=== PATIENT | female | born 1965 | race Caucasian/White ===

== ENCOUNTER 2022-10-07 12:25 | Inpatient (IN) ==
[2022-10-07] MEDS ORDERED: ONDANSETRON INJ 2 MG/ML 2 ML VIAL ONE (12:49)
[2022-10-07] MEDS ORDERED: SODIUM CHLORIDE 0.9% 1000ML 1,000 ML IV STA (12:55)
[2022-10-07] MEDS ORDERED: ONDANSETRON INJ 2 MG/ML 2 ML VIAL IV STA ×2 (12:55→16:08)
--- NOTE | 2022-10-07 13:00 | Emergency Department Note ---
Impression & Plan Nausea & vomiting, Weakness, Leukocytosis, Hypotensive episode ED Provider Note INFORMANT: Patient ED PROVIDER(S): Victor M Del Castillo DO CHIEF COMPLAINT: Nausea/vomiting PLAN: Disposition: Observation Outpatient prescription management: [none] Discussion with: I spoke with the hospitalist, who will see the patient for admission/observation and further evaluation and consultation. MEDICAL DECISION MAKING: This is a 56-year-old female who presents to the ED with a chief complaint of nausea and vomiting. The patient states that she was feeling okay this morning. Family states that the patient has been having some intermittent nausea and flulike symptoms for the past couple of weeks. The patient this morning was at an event. She was not doing much activity there. She was in organizer. She subsequently developed nausea and vomiting. She then became lightheaded and dizzy. Blood sugar upon arrival was 246. The patient was vomiting in the ED. She states that her nausea comes in waves. She denies any abdominal pains. No fevers. No chest pains or shortness of breath. Denies any diarrhea recently. Denies any headaches. No focal neurologic deficits. No other complaints at this time other than feeling generally fatigued and weak. The vomit in the ED was none bilious and nonbloody. Her initial blood pressure in triage was 88/61. Heart rate was 92. She does have history of hypertension as well as cholecystectomy and type 2 diabetes requiring insulin. Her exam reveals nontender abdomen. Lungs are clear. Heart is regular rate and rhythm. No rashes. EKG shows normal sinus rhythm. The patient's EKG shows normal sinus rhythm. White blood cell count is elevated 22.9. Chemistry panel showed no concerning electrolyte abnormality. Glucose is elevated 261. She is diabetic. Troponin was negative for myocardial infarction. Lipase was negative for pancreatitis. CT scan of the abdomen pelvis did not show any concerning abnormalities. The patient was told the results. She required at least 2 doses of IV Zofran during her ED stay. She was also given some IV fluids. She continued to have nausea and some vomiting despite 2 doses of IV Zofran. She overall is not feeling well. She lives alone. She does not feel comfortable going home. She will be seen by the hospitalist for further evaluation and care. Triage Nursing notes reviewed. Vital Signs: reviewed Prior /Outside records reviewed: [none] Differential diagnosis: Bowel obstruction, pancreatitis, liver disease, food poisoning, viral syndrome, dehydration, electrolyte abnormality, [place], intracranial process, other Diagnostics, as interpreted by me: 12 lead ECG: Normal sinus rhythm rate of 93. No ST elevation. No PVCs. Normal QTc. Cardiac Monitoring ordered: Sinus rhythm in the 80s and 90s. Medical decision rules: [none] Imaging studies: CT scan of the abdomen pelvis: No bowel obstruction. No pneumonia in the bases of the lungs. Procedures: none. Critical care: none. HPI: See MDM above. PAST MEDICAL HISTORY: See Below PAST SURGICAL HISTORY: See Below SOCIAL HISTORY: See Below HOME MEDICATIONS:See Below ALLERGIES: See Below VITALS: See Below PHYSICAL EXAMINATION: See MDM for positive findings otherwise unremarkable. CONSTITUTIONAL/VITAL SIGNS: Reviewed GENERAL:done as appropriate INTEGUMENTARY: done as appropriate HEAD: done as appropriate EYES: done as appropriate RESPIRATORY: done as appropriate CARDIOVASCULAR:done as appropriate GI/ABDOMEN:done as appropriate EXTREMITIES: done as appropriate NEUROLOGICAL: done as appropriate PSYCHIATRIC:done as appropriate MUSCULOSKELETAL:done as appropriate TRIAGE NURSING DOCUMENTATION REVIEWED. Past Med/Surg History Medical History (Updated 10/07/22 @ 17:26 by Victor M Del Castillo DO) Depression Diabetes mellitus, type 2 GERD (gastroesophageal reflux disease) HTN (hypertension) Hyperlipidemia Hypothyroidism Nausea and vomiting Nausea and vomiting after administration of anesthetic agent Spinal stenosis Surgical History History of cholecystectomy History of colonoscopy History of intraocular lens implant bilt History of lumbar laminectomy L4-L5 History of needle biopsy benign right breast History of tooth extraction History of wisdom tooth extraction Family History Mother Family history of diabetes mellitus Sister Family history of diabetes mellitus 2 Other No family history of adverse response to anesthesia Social History Smoking Status: Never smoker Second Hand Exposure: Yes (parents and sisters smoked); Do You Dip or Chew Tobacco: No; Hx Alcohol Use: No Hx Substance Use: No Preferred Language: [place] Communication Ability: Effective Founder Ceo & President Required: No Beliefs That Will Affect Care: None Current Living Situation: Alone Feels Safe at Home: Yes Assistive Devices: Glasses Allergies Allergies Allergy/AdvReac Type Severity Reaction Status Date / Time tree nut Allergy Severe swelling Verified 10/07/22 15:52 face/lips/tongue Penicillins Allergy Intermediate hives Verified 10/07/22 15:52 morphine AdvReac Intermediate vomit Verified 10/07/22 15:52 Home Meds Home Medications Medication Instructions Recorded Confirmed levothyroxine 50 mcg tablet 50 mcg PO DAILYBB 10/05/18 10/07/22 metformin 1,000 mg tablet 1,000 mg PO BIDM 10/05/18 10/07/22 venlafaxine 150 mg tablet,extended 150 mg PO QAM 10/05/18 10/07/22 release 24 hr atorvastatin 20 mg tablet 20 mg PO HS 10/07/22 10/07/22 clobetasol 0.05 % topical ointment 1 applic topical BID PRN Rash 10/07/22 10/07/22 empagliflozin 25 mg tablet 25 mg PO QAM 10/07/22 10/07/22 (Jardiance) insulin aspart U-100 100 unit/mL 0 unit subcut DIRECTED 10/07/22 10/07/22 (3 mL) subcutaneous pen (Novolog FlexPen U-100 Insulin aspart) insulin degludec 100 28 unit subcut DAILY 10/07/22 10/07/22 unit-liraglutide 3.6 mg/mL(3 mL) subcutaneous pen (Xultophy 100/3.6) lisinopril 5 mg tablet 5 mg PO QAM 10/07/22 10/07/22 Results & Data (ED) Vital Signs Vital Signs - 24 hr 10/07/22 12:31 10/07/22 12:58 10/07/22 13:03 Temperature Source Temporal Artery Scan Pulse Rate 92 H 93 H Pulse Rate [Apical] Pulse Rate from SpO2 Sensor Pulse Rhythm [Apical] Pulse Strength [Apical] Respiratory Rate 18 Respiratory Effort / Characteristics Non-Labored Respiratory Depth Normal Respiratory Pattern Blood Pressure 88/61 L Blood Pressure [Right Arm] Blood Pressure Mean 70 Blood Pressure Mean [Right Arm] Pulse Oximetry 97 98 Oxygen Delivery Method Room Air Room Air Sepsis Recent Fever Within 48 Hours No Sepsis New/Unexplained Change in Mental Status No Sepsis Action Taken by Nursing No Action Required 10/07/22 13:13 10/07/22 13:00 10/07/22 13:30 Temperature Source Pulse Rate 92 H 86 Pulse Rate [Apical] 94 H Pulse Rate from SpO2 Sensor Pulse Rhythm [Apical] Regular Pulse Strength [Apical] Normal Respiratory Rate 18 16 19 Respiratory Effort / Characteristics Non-Labored Spontaneous Respiratory Depth Normal Respiratory Pattern Regular Blood Pressure 126/66 132/50 L Blood Pressure [Right Arm] 126/66 Blood Pressure Mean 86 77 Blood Pressure Mean [Right Arm] 86 Pulse Oximetry 95 95 94 Oxygen Delivery Method Room Air Room Air Room Air Sepsis Recent Fever Within 48 Hours Sepsis New/Unexplained Change in Mental Status Sepsis Action Taken by Nursing 10/07/22 13:45 10/07/22 14:00 10/07/22 14:10 Temperature Source Pulse Rate 85 87 83 Pulse Rate [Apical] Pulse Rate from SpO2 Sensor Pulse Rhythm [Apical] Pulse Strength [Apical] Respiratory Rate 17 20 17 Respiratory Effort / Characteristics Respiratory Depth Respiratory Pattern Blood Pressure 125/52 L 124/63 Blood Pressure [Right Arm] Blood Pressure Mean 76 83 Blood Pressure Mean [Right Arm] Pulse Oximetry 94 Oxygen Delivery Method Room Air Sepsis Recent Fever Within 48 Hours Sepsis New/Unexplained Change in Mental Status Sepsis Action Taken by Nursing 10/07/22 14:16 10/07/22 14:23 10/07/22 14:45 Temperature Source Pulse Rate 81 Pulse Rate [Apical] Pulse Rate from SpO2 Sensor 80 Pulse Rhythm [Apical] Pulse Strength [Apical] Respiratory Rate 17 Respiratory Effort / Characteristics Respiratory Depth Respiratory Pattern Blood Pressure 112/48 L 126/66 113/55 L Blood Pressure [Right Arm] Blood Pressure Mean 69 86 74 Blood Pressure Mean [Right Arm] Pulse Oximetry 96 95 Oxygen Delivery Method Room Air Room Air Sepsis Recent Fever Within 48 Hours Sepsis New/Unexplained Change in Mental Status Sepsis Action Taken by Nursing 10/07/22 14:50 10/07/22 15:08 10/07/22 15:09 Temperature Source Pulse Rate 86 85 85 Pulse Rate [Apical] Pulse Rate from SpO2 Sensor 87 85 90 Pulse Rhythm [Apical] Pulse Strength [Apical] Respiratory Rate 20 21 20 Respiratory Effort / Characteristics Respiratory Depth Respiratory Pattern Blood Pressure Blood Pressure [Right Arm] Blood Pressure Mean Blood Pressure Mean [Right Arm] Pulse Oximetry 98 96 96 Oxygen Delivery Method Sepsis Recent Fever Within 48 Hours Sepsis New/Unexplained Change in Mental Status Sepsis Action Taken by Nursing 10/07/22 15:09 10/07/22 15:10 10/07/22 15:27 Temperature Source Pulse Rate 83 89 Pulse Rate [Apical] Pulse Rate from SpO2 Sensor 83 88 Pulse Rhythm [Apical] Pulse Strength [Apical] Respiratory Rate 22 30 H Respiratory Effort / Characteristics Respiratory Depth Respiratory Pattern Blood Pressure 137/64 Blood Pressure [Right Arm] Blood Pressure Mean 88 Blood Pressure Mean [Right Arm] Pulse Oximetry 97 96 Oxygen Delivery Method Sepsis Recent Fever Within 48 Hours Sepsis New/Unexplained Change in Mental Status Sepsis Action Taken by Nursing 10/07/22 15:30 10/07/22 15:30 10/07/22 15:40 Temperature Source Pulse Rate 85 86 Pulse Rate [Apical] Pulse Rate from SpO2 Sensor 84 86 Pulse Rhythm [Apical] Pulse Strength [Apical] Respiratory Rate 23 15 Respiratory Effort / Characteristics Respiratory Depth Respiratory Pattern Blood Pressure 133/68 Blood Pressure [Right Arm] Blood Pressure Mean 89 Blood Pressure Mean [Right Arm] Pulse Oximetry 95 96 Oxygen Delivery Method Sepsis Recent Fever Within 48 Hours Sepsis New/Unexplained Change in Mental Status Sepsis Action Taken by Nursing 10/07/22 15:45 10/07/22 15:45 10/07/22 15:50 Temperature Source Pulse Rate 85 87 Pulse Rate [Apical] Pulse Rate from SpO2 Sensor 87 Pulse Rhythm [Apical] Pulse Strength [Apical] Respiratory Rate 16 22 Respiratory Effort / Characteristics Respiratory Depth Respiratory Pattern Blood Pressure 134/66 Blood Pressure [Right Arm] Blood Pressure Mean 88 Blood Pressure Mean [Right Arm] Pulse Oximetry 96 Oxygen Delivery Method Sepsis Recent Fever Within 48 Hours Sepsis New/Unexplained Change in Mental Status Sepsis Action Taken by Nursing 10/07/22 16:00 10/07/22 16:00 10/07/22 16:10 Temperature Source Pulse Rate 85 89 Pulse Rate [Apical] Pulse Rate from SpO2 Sensor 90 Pulse Rhythm [Apical] Pulse Strength [Apical] Respiratory Rate 17 19 Respiratory Effort / Characteristics Respiratory Depth Respiratory Pattern Blood Pressure 121/58 L Blood Pressure [Right Arm] Blood Pressure Mean 79 Blood Pressure Mean [Right Arm] Pulse Oximetry 97 Oxygen Delivery Method Sepsis Recent Fever Within 48 Hours Sepsis New/Unexplained Change in Mental Status Sepsis Action Taken by Nursing 10/07/22 16:15 10/07/22 16:15 10/07/22 16:20 Temperature Source Pulse Rate 90 88 Pulse Rate [Apical] Pulse Rate from SpO2 Sensor 89 88 Pulse Rhythm [Apical] Pulse Strength [Apical] Respiratory Rate 23 17 Respiratory Effort / Characteristics Respiratory Depth Respiratory Pattern Blood Pressure 120/74 Blood Pressure [Right Arm] Blood Pressure Mean 89 Blood Pressure Mean [Right Arm] Pulse Oximetry 97 95 Oxygen Delivery Method Sepsis Recent Fever Within 48 Hours Sepsis New/Unexplained Change in Mental Status Sepsis Action Taken by Nursing 10/07/22 16:30 10/07/22 16:30 10/07/22 16:40 Temperature Source Pulse Rate 88 86 Pulse Rate [Apical] Pulse Rate from SpO2 Sensor 86 Pulse Rhythm [Apical] Pulse Strength [Apical] Respiratory Rate 24 19 Respiratory Effort / Characteristics Respiratory Depth Respiratory Pattern Blood Pressure 139/64 Blood Pressure [Right Arm] Blood Pressure Mean 89 Blood Pressure Mean [Right Arm] Pulse Oximetry 96 Oxygen Delivery Method Sepsis Recent Fever Within 48 Hours Sepsis New/Unexplained Change in Mental Status Sepsis Action Taken by Nursing 10/07/22 16:45 10/07/22 16:45 10/07/22 16:50 Temperature Source Pulse Rate 88 89 Pulse Rate [Apical] Pulse Rate from SpO2 Sensor 89 Pulse Rhythm [Apical] Pulse Strength [Apical] Respiratory Rate 17 22 Respiratory Effort / Characteristics Respiratory Depth Respiratory Pattern Blood Pressure 122/62 Blood Pressure [Right Arm] Blood Pressure Mean 82 Blood Pressure Mean [Right Arm] Pulse Oximetry 96 Oxygen Delivery Method Sepsis Recent Fever Within 48 Hours Sepsis New/Unexplained Change in Mental Status Sepsis Action Taken by Nursing 10/07/22 17:00 10/07/22 17:00 10/07/22 17:10 Temperature Source Pulse Rate 88 91 H Pulse Rate [Apical] Pulse Rate from SpO2 Sensor 90 Pulse Rhythm [Apical] Pulse Strength [Apical] Respiratory Rate 18 20 Respiratory Effort / Characteristics Respiratory Depth Respiratory Pattern Blood Pressure 113/65 Blood Pressure [Right Arm] Blood Pressure Mean 81 Blood Pressure Mean [Right Arm] Pulse Oximetry 96 Oxygen Delivery Method Sepsis Recent Fever Within 48 Hours Sepsis New/Unexplained Change in Mental Status Sepsis Action Taken by Nursing 10/07/22 17:15 Temperature Source Pulse Rate 90 Pulse Rate [Apical] Pulse Rate from SpO2 Sensor Pulse Rhythm [Apical] Pulse Strength [Apical] Respiratory Rate Respiratory Effort / Characteristics Respiratory Depth Respiratory Pattern Blood Pressure Blood Pressure [Right Arm] Blood Pressure Mean Blood Pressure Mean [Right Arm] Pulse Oximetry Oxygen Delivery Method Sepsis Recent Fever Within 48 Hours Sepsis New/Unexplained Change in Mental Status Sepsis Action Taken by Nursing Laboratory Data 10/07/22 13:07 10/07/22 13:07 Lab Results 10/07/22 10/07/22 10/07/22 Range/Units 12:31 12:45 13:07 WBC 22.93 H (4.8-10.8) K/ul RBC 5.14 (4.20-5.40) M/uL Hgb 14.5 (12.0-16.0) g/dl Hct 47.1 H (37.0-47.0) % MCV 91.6 (80.0-100.0) fL MCH 28.2 (25.0-34.0) pg MCHC 30.8 L (32.0-36.0) g/dL RDW Std Deviation 47.4 H (36.4-46.3) fL RDW Coeff of Mallory 14.2 (11.5-14.5) % Plt Count 351 (130-400) K/uL MPV 11.5 (9.4-12.4) fL Immature Gran % (Auto) 1.0 % Neut % (Auto) 75.7 % Lymph % (Auto) 20.1 % [place] % (Auto) 2.9 % Eos % (Auto) 0.0 % Baso % (Auto) 0.3 % Neut # (Auto) 17.32 H (1.40-6.50) K/uL Lymph # (Auto) 4.62 H (1.2-3.4) K/uL [place] # (Auto) 0.67 H (0.11-0.59) K/uL Eos # (Auto) 0.01 (0-0.50) K/uL Baso # (Auto) 0.08 (0-0.2) K/uL Immature Gran # (Auto) 0.23 H (0.01-0.20) K/uL Sodium (136-145) mmol/L Potassium (3.5-5.1) mmol/L Chloride (98-107) mmol/L Carbon Dioxide (21-32) mmol/L Anion Gap (3-11) BUN (6-23) mg/dl Creatinine (0.6-1.2) mg/dl Est Cr Clr Drug Dosing Est GFR ( Amer) ml/min Est GFR (Non-Af Amer) ml/min BUN/Creatinine Ratio (10-20) Glucose (70-99(Fasting)) mg/dl POC Glucose 246 H 250 H (70-99) mg/dl Calcium (8.6-10.3) mg/dl Total Bilirubin (0.2-1.0) mg/dl AST (13-39) U/L ALT (7-52) U/L Alkaline Phosphatase (34-104) U/L Troponin I High Sens (0-14) pg/ml Total Protein (6.0-8.3) gm/dl Albumin (3.4-5.0) gm/dl Globulin (2.5-4.0) gm/dl Albumin/Globulin Ratio (0.9-2) Lipase (11-82) U/L 10/07/22 Range/Units 13:07 WBC (4.8-10.8) K/ul RBC (4.20-5.40) M/uL Hgb (12.0-16.0) g/dl Hct (37.0-47.0) % MCV (80.0-100.0) fL MCH (25.0-34.0) pg MCHC (32.0-36.0) g/dL RDW Std Deviation (36.4-46.3) fL RDW Coeff of Mallory (11.5-14.5) % Plt Count (130-400) K/uL MPV (9.4-12.4) fL Immature Gran % (Auto) % Neut % (Auto) % Lymph % (Auto) % [place] % (Auto) % Eos % (Auto) % Baso % (Auto) % Neut # (Auto) (1.40-6.50) K/uL Lymph # (Auto) (1.2-3.4) K/uL [place] # (Auto) (0.11-0.59) K/uL Eos # (Auto) (0-0.50) K/uL Baso # (Auto) (0-0.2) K/uL Immature Gran # (Auto) (0.01-0.20) K/uL Sodium 139 (136-145) mmol/L Potassium 3.5 (3.5-5.1) mmol/L Chloride 105 (98-107) mmol/L Carbon Dioxide 21 (21-32) mmol/L Anion Gap 13 H (3-11) BUN 18 (6-23) mg/dl Creatinine 0.66 (0.6-1.2) mg/dl Est Cr Clr Drug Dosing Not Reportable Est GFR ( Amer) 113.7 ml/min Est GFR (Non-Af Amer) 98.1 ml/min BUN/Creatinine Ratio 27.3 H (10-20) Glucose 261 H (70-99(Fasting)) mg/dl POC Glucose (70-99) mg/dl Calcium 9.6 (8.6-10.3) mg/dl Total Bilirubin 0.3 (0.2-1.0) mg/dl AST 26 (13-39) U/L ALT 33 (7-52) U/L Alkaline Phosphatase 133 H (34-104) U/L Troponin I High Sens 11.3 (0-14) pg/ml Total Protein 7.8 (6.0-8.3) gm/dl Albumin 4.5 (3.4-5.0) gm/dl Globulin 3.3 (2.5-4.0) gm/dl Albumin/Globulin Ratio 1.4 (0.9-2) Lipase 44 (11-82) U/L Administered Medications Discontinued Medications Sodium Chloride (Nss 1000ml) 1,000 mls @ 999 mls/hr IV .Q1H1M STA Stop: 10/07/22 13:55 Last Infusion: 10/07/22 14:53 Dose: 0 mls/hr Documented By: Admin: 10/07/22 12:56 Dose: 999 mls/hr Documented By: KAROLINA Ioversol (Optiray 320 100ml) 78 ml IV ONCE ONE Stop: 10/07/22 15:18 Last Admin: 10/07/22 15:17 Dose: 78 ml Documented By: JESSICA Ondansetron HCl (Ondansetron Inj 2 Mg/Ml 2 Ml Vial) Confirm Administered Dose 4 mg .ROUTE .STK-MED ONE Stop: 10/07/22 12:50 Last Admin: 10/07/22 13:02 Dose: Not Given Documented By: KAROLINA Ondansetron HCl (Ondansetron Inj 2 Mg/Ml 2 Ml Vial) 4 mg IV NOW STA Stop: 10/07/22 12:56 Last Admin: 10/07/22 12:56 Dose: 4 mg Documented By: KAROLINA Ondansetron HCl (Ondansetron Inj 2 Mg/Ml 2 Ml Vial) 4 mg IV NOW STA Stop: 10/07/22 16:09 Last Admin: 10/07/22 16:17 Dose: 4 mg Documented By: LOIS Imaging Data Radiologist's Impression: Abdomen/Pelvis CT 10/07/22 14:31 CT OF THE ABDOMEN AND PELVIS WITH CONTRAST CLINICAL HISTORY: Leukocytosis. Vomiting. COMPARISON STUDY: CT of the abdomen and pelvis February 12, 2014. TECHNIQUE: Following IV administration of 78 mL of Optiray, axial images of the abdomen and pelvis were obtained from the lung bases to the proximal femurs. Images were reviewed in the axial, sagittal, and coronal planes. IV contrast was administered without complication. Automated exposure control was utilized for the study. A dose lowering technique was utilized adhering to the principles of ALARA. CT DOSE: 920.98 mGy.cm FINDINGS: Lung bases are unremarkable. There is no pneumatosis, free air or portal venous gas. There is no biliary ductal dilatation status post cholecystectomy. No hepatic lesions are present. Spleen, adrenal glands, kidneys and pancreas are normal. There is no hydronephrosis. Major vasculature is patent. No lymphadenopathy is present. A moderate to large amount of stool within the mid to distal descending colon, sigmoid colon and rectum is present. The remainder of the colon is mildly dilated and fluid-filled. There is no evidence for a bowel obstruction. No ascites. No acute fractures. The appendix is normal. IMPRESSION: 1. Moderate to large amount of stool within the left colon and rectum. The remainder of the colon is mildly dilated and fluid-filled which may be due to the stool. No evidence for a bowel obstruction. 2. Otherwise, no acute process within the abdomen or pelvis. Normal appendix. ACT 112: Negative or not required by law. Electronically signed by: Ac Chen M.D. 10/07/2022 3:43 PM Discharge Plan Visit Data Chief Complaint: Illness Stated Complaint: COLD, CLAMMY, DIABETIC, NAUSEA, SEMI CONSCIOUS ED Provider: Victor M Del Castillo Discharge Problem: Nausea & vomiting, Weakness, Leukocytosis, Hypotensive episode Patient Disposition: Being Evaluated by Hospitalist Forms Stand Alone Forms: [facility] Fiscal[facility] Prescriptions Prescriptions: No Action levothyroxine 50 mcg Tablet 50 mcg PO DAILYBB metformin 1,000 mg Tablet 1,000 mg PO BIDM venlafaxine 150 mg Tablet Extended Release 24hr 150 mg PO QAM Rx Instructions: DO NOT CRUSH, CHEW OR CUT. atorvastatin 20 mg tablet 20 mg PO HS lisinopril 5 mg tablet 5 mg PO QAM clobetasol 0.05 % ointment 1 applic TOPICAL BID PRN (Reason: Rash) insulin aspart U-100 [Novolog FlexPen U-100 Insulin] 100 unit/mL (3 mL) insulin pen 0 unit SUBCUT DIRECTED Rx Instructions: INJECT 9 UNITS UNDER THE SKIN DAILY BEFORE BREAKFAST, INCREASE BY 1 UNIT EVERY 3 DAYS UNTIL BG IS GREATER THAN 150 BEFORE LUNCH. Jardiance 25 mg tablet 25 mg PO QAM Xultophy 100/3.6 100 unit-3.6 mg /mL (3 mL) insulin pen 28 unit SUBCUT DAILY Referrals Referrals: Suha Rae MD [Outside Practitioners] -
[2022-10-07 13:31] LABS: Basophils # (auto) 0.08 K/uL (0-0.2); Basophils % (auto) 0.3 %; Eosinophils # (auto) 0.01 K/uL (0-0.50); Hematocrit (blood only) 47.1 % (37.0-47.0); Hemoglobin 14.5 g/dl (12.0-16.0); Immature Granulocytes # (auto) 0.23 K/uL (0.01-0.20); Lymphocytes # (auto) 4.62 K/uL (1.2-3.4); Lymphocytes % (auto) 20.1 %; Mean Corpuscular Hemoglobin 28.2 pg (25.0-34.0); Mean Corpuscular Hgb Conc 30.8 g/dL (32.0-36.0); Mean Corpuscular Volume 91.6 fL (80.0-100.0); Mean Platelet Volume 11.5 fL (9.4-12.4); Monocytes # (auto) 0.67 K/uL (0.11-0.59); Monocytes % (auto) 2.9 %; Neutrophils # (auto) 17.32 K/uL (1.40-6.50); Neutrophils % (auto) 75.7 %; Platelet Count 351 K/uL (130-400); RDW Coefficient of Variation 14.2 % (11.5-14.5); RDW Standard Deviation 47.4 fL (36.4-46.3); Red Blood Count 5.14 M/uL (4.20-5.40); White Blood Count 22.93 K/ul (4.8-10.8)
[2022-10-07 13:48] LABS: Alanine Aminotransferase 33 U/L (7-52); Albumin Globulin Ratio 1.4 (0.9-2); Albumin Level 4.5 gm/dl (3.4-5.0); Alkaline Phosphatase 133 U/L (34-104); Anion Gap 13 (3-11); Aspartate Aminotransferase 26 U/L (13-39); BUN Creatinine Ratio 27.3 (10-20); Bilirubin,Total 0.3 mg/dl (0.2-1.0); Blood Urea Nitrogen 18 mg/dl (6-23); Calcium 9.6 mg/dl (8.6-10.3); Carbon Dioxide 21 mmol/L (21-32); Chloride 105 mmol/L (98-107); Est GFR (African American) 113.7 ml/min; Est GFR (Non-African American) 98.1 ml/min; Globulin 3.3 gm/dl (2.5-4.0); Glucose 261 mg/dl (70-99(Fasting)); Lipase 44 U/L (11-82); Potassium 3.5 mmol/L (3.5-5.1); Sodium 139 mmol/L (136-145); Total Protein 7.8 gm/dl (6.0-8.3)
[2022-10-07 13:50] LABS: Troponin I High Sensitivity 11.3 pg/ml (0-14)
[2022-10-07] MEDS ORDERED: OPTIRAY 320 100ml IV ONE (15:17)
--- NOTE | 2022-10-07 15:39 | Electrocardiogram Report ---
Test Reason : Blood Pressure : / mmHG Vent. Rate : 093 BPM Atrial Rate : 093 BPM P-R Int : 178 ms QRS Dur : 078 ms QT Int : 348 ms P-R-T Axes : 030 -13 056 degrees QTc Int : 432 ms Normal sinus rhythm Inferior infarct , age undetermined Anterolateral infarct , age undetermined Abnormal ECG When compared with ECG of 12-FEB-2014 17:12, Anterior infarct is now Present Anterolateral infarct is now Present Inferior infarct is now Present Confirmed by Manas Munoz ([id number]) on 10/07/2022 3:38:50 PM Referred By: REFERRED SELF Confirmed By:Jerry Munoz
--- NOTE | 2022-10-07 15:45 | CT Scan Report ---
CT OF THE ABDOMEN AND PELVIS WITH CONTRAST CLINICAL HISTORY: Leukocytosis. Vomiting. COMPARISON STUDY: CT of the abdomen and pelvis February 12, 2014. TECHNIQUE: Following IV administration of 78 mL of Optiray, axial images of the abdomen and pelvis we re obtained from the lung bases to the proximal femurs. Images were reviewed in the axial, sagittal, and coronal planes. IV contrast was administered without complication. Automated exposure control wa s utilized for the study. A dose lowering technique was utilized adhering to the principles of ALARA . CT DOSE: 920.98 mGy.cm FINDINGS: Lung bases are unremarkable. There is no pneumatosis, free air or portal venous gas. There is no biliary ductal dilatation status post cholecystectomy. No hepatic lesions are present. Spleen, adrenal glands, kidneys and pancreas are normal. There is no hydronephrosis. Major vasculature is pat ent. No lymphadenopathy is present. A moderate to large amount of stool within the mid to distal desc ending colon, sigmoid colon and rectum is present. The remainder of the colon is mildly dilated and f luid-filled. There is no evidence for a bowel obstruction. No ascites. No acute fractures. The append ix is normal. IMPRESSION: 1. Moderate to large amount of stool within the left colon and rectum. The remainder of the colon is mildly dilated and fluid-filled which may be due to the stool. No evidence for a bowel obstruction. 2. Otherwise, no acute process within the abdomen or pelvis. Normal appendix. ACT 112: Negative or not required by law. Electronically signed by: Ac Chen M.D. 10/07/2022 3:43 PM
[2022-10-07] MEDS ORDERED: PHARMACY GLYCEMIC MGMT CONSULT PRN (16:40)
[2022-10-07] MEDS ORDERED: ACETAMINOPHEN 325 MG TAB PO PRN (16:40)
[2022-10-07] MEDS ORDERED: POLYETHYLENE (MIRALAX) 17 GM PACK PO PRN (16:40)
[2022-10-07] MEDS ORDERED: CARBOHYDRATES FOR HYPOGLYCEMIA PO PRN (16:40)
[2022-10-07] MEDS ORDERED: GLUCAGON FOR INJ 1 MG VIAL SQ PRN (16:40)
[2022-10-07] MEDS ORDERED: MAGNESIUM HYDROXIDE SUSP 30 ML UDC PO PRN (16:40)
[2022-10-07] MEDS ORDERED: GLUCOSE 40% GEL 15 GM TUBE PO PRN (16:40)
[2022-10-07] MEDS ORDERED: ALUMINUM/MAGNESIUM SUSP 30 ML UDC PO PRN (16:40)
[2022-10-07] MEDS ORDERED: GLUCOSE 10 TAB/TUBE PO PRN (16:40)
[2022-10-07] MEDS ORDERED: DEXTROSE 50% 50 ML SYRINGE IV PRN (16:40)
--- NOTE | 2022-10-07 16:55 | History & Physical Report ---
Date of Service October 07, 2022 Assessment & Plan (1) Nausea and vomiting: (2) Diabetes: (3) Hypothyroidism: (4) Hyperlipidemia: (5) Depression: (6) History of cholecystectomy: (7) HTN (hypertension): Plan: 56 year old that presents with N/V and hypotension. Leukocytosis 22.93, Troponin 11.3, Zofran PRN, Check UA and blood cultures for infection source. It is suspected that her nausea and vomiting may likely be stress related. Patient is afebrile and appears nontoxic. If she does become febrile or infectious will initiate antibiotics.. Advanced diet as tolerated. Add'l PMH includes: H/O Cholecystectomy; IDDM2, HTN, HLD, depression Nausea and Vomiting: H/O Cholecystectomy: hypotensive on arrival; resolved with fluid resuscitation Abdominal/pelvis CT negative for SBO Leukocytosis 22.93 No transaminitis Troponin 11.3 Zofran PRN Check UA and blood cultures for infection source May likely be stress related; patient is afebrile and appears nontoxic Check lactate; if becoming febrile or infectious initiate antibiotics. Check hcg Advanced diet as tolerated GI consult if no improvement Insulin Dependent Diabetes Mellitus: Takes Jardiance, Regular Insulin, Xultopy, and Metformin; hold while inpatient ACHS FSBS SSI while inpatient Check A1C advance diet as tolerated; heart healthy and Diabetic HTN: Takes Lisinopril ; continue HLD: Takes Atorvastatin; continue Recent lipid panel: 08/25/22: TG 133, HDL 48, LDL 53 Depression: Takes Venlafaxine; continue Disposition: PCP: Dr. Cuellar Code: Full Code VTE Prophylaxis: Lovenox SQ I spent a total of 86 minutes coordinating, documenting, and providing care for this patient excluding time spent in the performance of separately billed serv ices. All of the aforementioned completed while collaborating with the assigned attending physician for a full treatment plan. Please see their addendum for further details. History of Present Illness Chief Complaint: Nausea and vomiting Primary Care Provider: Ashia Cuellar MD Ms. Suarez is a 56 year old male who presented to the [facility] as she started to have nausea and vomiting when she was at work today. 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 Today she started to feel ill and 20 minutes after feeling ill she had an episode of vomiting for which was just food. She was feeling clammy and diaphoretic and checked her blood sugar which was 160. Her glucose this morning was 120. She reports being relatively controlled with her diab etes. Patient reports that last week she was experiencing URI symptoms including aches and fever of 100 degrees. She did test for COVID at that time and was negative. on arrival to the ED; she was found to be hypotensive SBP 88. She responded well to [address]NSB[address]dominal and pelvic CT negative for SBO, Moderate to large amount of stool within the left colon and rectum. She did have a skin excision a few days ago but does not appear infected. Leukocytosis; WBC 22.93, glucose 246; she is a known insulin dependent diabetic. Additional PMH includes: HTN, HLD, depression, hypothyroidism, MCCANN status post liver biopsy, and history of cholecystectomy. Patient denies headache, dizziness, shortness of breath, chest pain, palpitations, diarrhea or bowel changes, appetite changes, recent falls or trauma, recent swelling of lower extremities. Pt denies change of . Patient is sitting upright in her hospital bed in no apparent distress. Patient is AAOx4 and able to answer all questions appropriately. Patient is hemodynamically stable not requiring any supplemental oxygen and is euvolemic on exam. 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 She does have an estranged relationship with her son. No appointed decision-maker on her behalf. Confirmed patient does have a penicillin allergy that does cause hives. It is suspected that her nausea and vomiting may likely be stress related. Patient is afebrile and appears nontoxic. If she does become febrile or infectious will initiate antibiotics. Patient will be admitted for further evaluation and management. Please see A/P for further details. Allergies Allergy/AdvReac Type Severity Reaction Status Date / Time tree nut Allergy Severe swelling Verified 10/07/22 15:52 face/lips/tongue Penicillins Allergy Intermediate hives Verified 10/07/22 15:52 morphine AdvReac Intermediate vomit Verified 10/07/22 15:52 Home Medications Medication Instructions Recorded Confirmed Type levothyroxine 50 mcg tablet 50 mcg PO DAILYBB 10/05/18 10/07/22 History metformin 1,000 mg tablet 1,000 mg PO BIDM 10/05/18 10/07/22 History venlafaxine 150 mg tablet,extended 150 mg PO QAM 10/05/18 10/07/22 History release 24 hr atorvastatin 20 mg tablet 20 mg PO HS 10/07/22 10/07/22 History clobetasol 0.05 % topical ointment 1 applic topical BID PRN Rash 10/07/22 10/07/22 History empagliflozin 25 mg tablet 25 mg PO QAM 10/07/22 10/07/22 History (Jardiance) insulin aspart U-100 100 unit/mL 0 unit subcut DIRECTED 10/07/22 10/07/22 History (3 mL) subcutaneous pen (Novolog FlexPen U-100 Insulin aspart) insulin degludec 100 28 unit subcut DAILY 10/07/22 10/07/22 History unit-liraglutide 3.6 mg/mL(3 mL) subcutaneous pen (Xultophy 100/3.6) lisinopril 5 mg tablet 5 mg PO QAM 10/07/22 10/07/22 History Past Med/Surg History Medical History (Updated 10/07/22 @ 17:26 by Victor M Del Castillo DO) Depression Diabetes mellitus, type 2 GERD (gastroesophageal reflux disease) HTN (hypertension) Hyperlipidemia Hypothyroidism Nausea and vomiting Nausea and vomiting after administration of anesthetic agent Spinal stenosis Surgical History History of cholecystectomy History of colonoscopy History of intraocular lens implant bilt History of lumbar laminectomy L4-L5 History of needle biopsy benign right breast History of tooth extraction History of wisdom tooth extraction Family History Mother Family history of diabetes mellitus Sister Family history of diabetes mellitus 2 Other No family history of adverse response to anesthesia Social History Smoking Status: Never smoker Second Hand Exposure: Yes (parents and sisters smoked); Do You Dip or Chew Tobacco: No; Hx Alcohol Use: No Hx Substance Use: No Preferred Language: Pakistani Communication Ability: Effective Hr Business Partner Consultant Required: No Beliefs That Will Affect Care: None Current Living Situation: Alone Feels Safe at Home: Yes Assistive Devices: Glasses Review of Systems Review of Systems: Neuro: (-) Falls, trauma, slurred speech HEENT: (-) DUDLEY, dizziness, dysphagia, visual or auditory changes CV: (-) CP, palpitations, swelling Resp: (-) SOB GI: (-) appetite changes, (+) N/V(-) D, bowel changes : (-) urinary changes Skin: (-) rashes Psych: (-) anxiety, depression Physical Exam Physical Exam: Neuro: AAOx4, PERRLA, no aphagia, memory changes, CNII-XII grossly intact HEENT: head normocephalic, moist mucus membranes CV: S1/S2, (-) M/G/R, (-) edema, cap refill < 3 seconds Resp: Lungs CTA in all elkins. On RA GI: Abdomen S/NT/ND, Ax4 bowel sounds, (-) CVA tenderness Musculoskeletal: 5/5 B/L UE strength, 5/5 B/L LE strength. No gait disturbance Skin: (-) rashes , (-) erythema. Psych: euthymic mood Results & Data Results & Data Vital Signs (Past 12 Hours) Vital Signs Pulse Pulse Resp BP BP Pulse Ox O2 Del Method 10/07/22 14:45 113/55 L 95 Room Air 10/07/22 14:23 81 17 126/66 96 Room Air 10/07/22 14:16 112/48 L 10/07/22 14:10 83 17 10/07/22 14:00 87 20 124/63 10/07/22 13:45 85 17 125/52 L 94 Room Air 10/07/22 13:30 86 19 132/50 L 94 Room Air 10/07/22 13:00 92 H 16 126/66 95 Room Air 10/07/22 13:13 94 H 18 126/66 95 Room Air 10/07/22 13:03 98 Room Air 10/07/22 12:58 93 H 10/07/22 12:31 92 H 18 88/61 L 97 Room Air Laboratory Results Short CBC 10/07/22 Range/Units 13:07 WBC 22.93 H (4.8-10.8) K/ul Hgb 14.5 (12.0-16.0) g/dl Hct 47.1 H (37.0-47.0) % Plt Count 351 (130-400) K/uL BMP 10/07/22 13:07 Sodium 139 Potassium 3.5 Chloride 105 Carbon Dioxide 21 BUN 18 Creatinine 0.66 Glucose 261 H Calcium 9.6 Liver Function 10/07/22 Range/Units 13:07 Total Bilirubin 0.3 (0.2-1.0) mg/dl AST 26 (13-39) U/L ALT 33 (7-52) U/L Alkaline Phosphatase 133 H (34-104) U/L Albumin 4.5 (3.4-5.0) gm/dl Diagnostic Findings Abdomen/Pelvis CT 10/07/22 14:31 CT OF THE ABDOMEN AND PELVIS WITH CONTRAST CLINICAL HISTORY: Leukocytosis. Vomiting. COMPARISON STUDY: CT of the abdomen and pelvis February 12, 2014. TECHNIQUE: Following IV administration of 78 mL of Optiray, axial images of the abdomen and pelvis were obtained from the lung bases to the proximal femurs. Images were reviewed in the axial, sagittal, and coronal planes. IV contrast was administered without complication. Automated exposure control was utilized for the study. A dose lowering technique was utilized adhering to the principles of ALARA. CT DOSE: 920.98 mGy.cm FINDINGS: Lung bases are unremarkable. There is no pneumatosis, free air or portal venous gas. There is no biliary ductal dilatation status post cholecystectomy. No hepatic lesions are present. Spleen, adrenal glands, kidneys and pancreas are normal. There is no hydronephrosis. Major vasculature is patent. No lymphadenopathy is present. A moderate to large amount of stool within the mid to distal descending colon, sigmoid colon and rectum is present. The remainder of the colon is mildly dilated and fluid-filled. There is no evidence for a bowel obstruction. No ascites. No acute fractures. The appendix is normal. IMPRESSION: 1. Moderate to large amount of stool within the left colon and rectum. The remainder of the colon is mildly dilated and fluid-filled which may be due to the stool. No evidence for a bowel obstruction. 2. Otherwise, no acute process within the abdomen or pelvis. Normal appendix. ACT 112: Negative or not required by law. Electronically signed by: Ac Chen M.D. 10/07/2022 3:43 PM Code Status & VTE Plan Code Status Full Code in the event of cardiac or respiratory arrest VTE Prophylaxis Plan VTE Prophylaxis will be ordered: Yes Supervising Physician Co-Signing Physician Notes Patient seen and examined independently. Discussed with above provider. Patient presents with nausea vomiting starting today. CT abdomen pelvis with no acute finding. Leukocytosis present. Patient afebrile and appears nontoxic. Hold off on antibiotic for now. Provide supportive care. Infectious work-up for now.
[2022-10-07] MEDS: INSULIN ASPART PER UNIT CHARGE SC SCH (19:02)
[2022-10-07 19:30] LABS: Appearance Urine Clear (Clear); Bilirubin Urine Negative (Negative); Blood Urine Negative (Negative); Color Urine Yellow; Glucose Urine UA 3+ (Negative); Ketones Urine Trace (Negative); Leukocyte Esterase Urine Negative (Negative); Nitrite Urine Negative (Negative); Protein Urine Negative (Negative); Specific Gravity Urine > 1.045 (1.000-1.030); Urobilinogen Urine Negative (Negative)
[2022-10-07 20:32] LABS: Pregnancy Test, Urine Negative (Negative)
[2022-10-07] MEDS ORDERED: INSULIN ASPART PER UNIT CHARGE SC SCH (21:00)
[2022-10-07] MEDS ORDERED: LANTUS PER UNIT CHARGE SQ SCH (21:00)
[2022-10-07] MEDS: ATORVASTATIN 20 MG TAB PO SCH (22:33)
[2022-10-08] MEDS: INSULIN ASPART PER UNIT CHARGE SC SCH ×6 (00:30→21:00)
[2022-10-08 05:28] LABS: Albumin Globulin Ratio 1.4 (0.9-2); Albumin Level 3.4 gm/dl (3.4-5.0); Bilirubin,Total 0.6 mg/dl (0.2-1.0); Calcium 8.4 mg/dl (8.6-10.3); Chol HDL Ratio 2.9 (0-5); Creatinine Clr Calc Pharmacy 118.5 ml/min; Est GFR (African American) 124.5 ml/min; Est GFR (Non-African American) 107.4 ml/min; Globulin 2.5 gm/dl (2.5-4.0); Magnesium 1.8 mg/dl (1.7-2.4); Potassium 3.6 mmol/L (3.5-5.1); Total Protein 5.9 gm/dl (6.0-8.3)
[2022-10-08 05:29] LABS: Hemoglobin 11.5 g/dl (12.0-16.0); Mean Corpuscular Hemoglobin 28.6 pg (25.0-34.0); Mean Corpuscular Hgb Conc 32.9 g/dL (32.0-36.0); Mean Corpuscular Volume 87.1 fL (80.0-100.0); Mean Platelet Volume 11.7 fL (9.4-12.4); Platelet Count 272 K/uL (130-400); RDW Coefficient of Variation 14.5 % (11.5-14.5); RDW Standard Deviation 46.1 fL (36.4-46.3); Red Blood Count 4.02 M/uL (4.20-5.40); White Blood Count 13.99 K/ul (4.8-10.8)
[2022-10-08] MEDS: LEVOTHYROXINE SODIUM 50 MCG TABLET PO SCH (06:16)
[2022-10-08 07:47] LABS: Estimated Average Glucose 197 mg/dl; Hemoglobin A1C 8.5 % (4.5-5.6)
[2022-10-08] MEDS: ENOXAPARIN INJ 30 MG/0.3 ML SYR SQ SCH (08:10)
[2022-10-08] MEDS: VENLAFAXINE HCL XR 150 MG CAPXR PO SCH (08:10)
[2022-10-08] MEDS: lisinopril 5 MG TAB PO SCH ×2 (08:10→08:12)
--- NOTE | 2022-10-08 13:13 | Pharmacy Report ---
Pharmacy Glycemic Short Note 2 - Date of Service October 08, 2022 - Glycemic Short BSG Results (Last 24 hours): 10/07/22 10/07/22 10/07/22 13:07 18:57 21:10 Glucose 261 H POC Glucose 155 H 113 H 10/08/22 10/08/22 10/08/22 00:03 04:19 06:15 Glucose 98 POC Glucose 100 H 100 H 10/08/22 11:46 Glucose POC Glucose 137 H OUTPATIENT ANTIDIABETIC REGIMEN: * Xultophy (insulin detemir-liraglutide) 28 units SC daily * Metformin 1000 mg PO BIDM * Jardiance 25 mg PO daily HbA1c: 8.5% (10/08/22) ASSESSMENT: * ME is a 56 year old female who presented to ED on 10/07 with intermittent naus ea/vomiting * BSGs well-controlled thus far with minimal insulin - clear liquid diet at this time * Patient reports taking all of her meds yesterday morning (including Xultophy - 28 units of Levemir) * Will utilize conservative initial insulin doses PLAN FOR INPATIENT GLYCEMIC CONTROL: * Hold outpatient oral diabetes medications * Basal insulin * Lantus 5-15 units SC HS * Bolus insulin * NovoLog per scale ACHS or Q6hrs while NPO * Goal Range: Low 110 mg/dL - High 140 mg/dL * Correction Factor: 35 mg/dL/unit * Nutritional / Prandial insulin per carb ratio of 1 unit per 12 grams CHO consumed
--- NOTE | 2022-10-08 14:32 | Hospitalist Progress Note ---
Date of Service October 08, 2022 Assessment & Plan (1) Nausea and vomiting: (2) Diabetes: (3) Hypothyroidism: (4) Hyperlipidemia: (5) Depression: (6) History of cholecystectomy: (7) HTN (hypertension): Plan 56-year-old female with history of diabetes type 2, hypertension, hyperli pidemia, depression, history of cholecystectomy who presented to ED yesterday with sudden onset nausea and vomiting. Work-up unremarkable so far. Improved with conservative management Nausea and Vomiting: Unclear cause. Work-up unremarkable so far. ? viral gastroenteritis -Improving with conservative management. No nausea vomiting since admission. Tolerating liquid diet without issues. Gradually advance as tolerated. -She is status post cholecystectomy. She sees gastroenterology as outpatient. States she had similar episode about 5 years back and had work-up with EGD/gastric emptying study was unremarkable. She was however found to have MCCANN and her symptoms improved with diet changes. She has a follow-up with GI in November and plan for MRI liver. Leukocytosis-probably reactive. Coming down nicely without any antibiotics. Blood cultures pending. Recheck CBC in a.m. Insulin Dependent Diabetes Mellitus: Takes Jardiance, Regular Insulin, Xultopy, and Metformin; hold while inpatient Continue insulin, adjust as indicated. HTN: BP low normal. Will hold lisinopril HLD: Takes Atorvastatin; continue Recent lipid panel: 08/25/22: TG 133, HDL 48, LDL 53 Depression: Takes Venlafaxine; continue Increased stress level currently- taking care of her 98-year-old mom, her sister being diagnosed with cancer, her 8-year-old granddaughter. She saw a therapist in the past which was helpful and is going to see her again as outpatient Disposition: Advancing diet. Anticipate discharge tomorrow if continues to do well Code: Full Code VTE Prophylaxis: Lovenox SQ Admission and Anticipated Discharge Date Admission Date: October 07, 2022 Subjective Patient was seen and examined at bedside. She feels better but not back to baseline yet. No nausea or vomiting. Tolerating clears without issues but she is hesitant to advance diet as of now. Passing gas but no bowel movement since admission. She denies abdominal pain. She states her stress level is high currently-she saw a therapist in the past and that was helpful. Review of Systems Review of Systems: All systems reviewed & are unremarkable except as noted in Subjective Physical Exam Physical Exam: General: Sitting comfortably in bed, not in distress, on room air HEENT: EOMI, LUCA, MMM Chest: Clear breath sounds bilaterally, no wheezes or crackles CVS: Regular rate and rhythm, normal heart sounds, no murmur Abdomen: Soft, non tender, not distended, normal bowel sounds Neuro: Awake, alert, oriented, conversing well, non focal Extremities: No cyanosis, clubbing or edema Results & Data Results & Data Vital Signs (Past 12 Hours) Vital Signs Temp Pulse Pulse Resp BP BP Pulse Ox 10/08/22 11:21 36.7 C 89 16 118/75 95 10/08/22 09:44 98/45 L 10/08/22 09:30 72 16 96 10/08/22 06:32 82 23 92/52 L 92 10/08/22 06:00 74 17 93 10/08/22 05:30 70 17 98/45 L 96 10/08/22 05:00 73 14 97/59 L 93 10/08/22 04:30 72 19 101/48 L 96 10/08/22 04:00 73 19 123/64 94 10/08/22 03:30 73 13 109/69 96 10/08/22 03:00 94/50 L 10/08/22 03:00 75 22 10/08/22 02:30 76 21 120/52 L 94 O2 Del Method 10/08/22 11:21 Room Air 10/08/22 09:44 10/08/22 09:30 Room Air 10/08/22 06:32 Room Air 10/08/22 06:00 Room Air 10/08/22 05:30 Room Air 10/08/22 05:00 Room Air 10/08/22 04:30 Room Air 10/08/22 04:00 Room Air 10/08/22 03:30 Room Air 10/08/22 03:00 10/08/22 03:00 10/08/22 02:30 Room Air Laboratory Results Short CBC 10/08/22 Range/Units 04:19 WBC 13.99 H (4.8-10.8) K/ul Hgb 11.5 L D (12.0-16.0) g/dl Hct 35.0 L (37.0-47.0) % Plt Count 272 (130-400) K/uL BMP 10/08/22 04:19 Sodium 142 Potassium 3.6 Chloride 107 Carbon Dioxide 29 BUN 20 Creatinine 0.50 L Glucose 98 Calcium 8.4 L Liver Function 10/08/22 Range/Units 04:19 Total Bilirubin 0.6 (0.2-1.0) mg/dl AST 19 (13-39) U/L ALT 24 (7-52) U/L Alkaline Phosphatase 70 (34-104) U/L Albumin 3.4 (3.4-5.0) gm/dl Urine 10/07/22 Range/Units 19:05 Urine Color Yellow Urine Appearance Clear (Clear) Urine pH 5.0 (4.5-7.5) Ur Specific [place] > 1.045 H (1.000-1.030) Urine Protein Negative (Negative) Urine Glucose (UA) 3+ H (Negative) Medications Administered Current Inpatient Medications Acetaminophen (Acetaminophen 325 Mg Tab) 650 mg PO Q4H PRN PRN Reason: Pain or Fever Stop: 11/06/22 16:39 Al Hydrox/Mg Hydrox/Simethicone (Aluminum/Magnesium Susp 30 Ml Udc) 15 ml PO Q4H PRN PRN Reason: Dyspepsia Stop: 11/06/22 16:39 Atorvastatin Calcium (Atorvastatin 20 Mg Tab) 20 mg PO HS MARVA Stop: 11/06/22 20:59 Last Admin: 10/07/22 22:33 Dose: 20 mg Dextrose (Dextrose 50% 50 Ml Syringe) 25 - 50 ml IV UD PRN; Protocol PRN Reason: Hypoglycemia Protocol Stop: 11/06/22 16:39 Enoxaparin Sodium (Enoxaparin Inj 30 Mg/0.3 Ml Syr) 30 mg SQ QAM MARVA Stop: 11/07/22 08:59 Last Admin: 10/08/22 08:10 Dose: 30 mg Glucagon (Glucagon For Inj 1 Mg Vial) 1 mg SQ UD PRN; Protocol PRN Reason: Hypoglycemia Protocol Stop: 11/06/22 16:39 Glucose (Glucose 10 Tab/Tube) 4 - 8 tab PO UD PRN; Protocol PRN Reason: Hypoglycemia Treatment Stop: 11/06/22 16:39 Glucose (Glucose 40% Gel 15 Gm Tube) 15 - 30 gm PO UD PRN; Protocol PRN Reason: Hypoglycemia Protocol Stop: 11/06/22 16:39 Insulin Aspart (Insulin Aspart Per Unit Charge) 0 units SC ACHS [facility] Stop: 11/06/22 17:59 Last Admin: 10/08/22 12:19 Dose: 2 units Insulin Glargine (Lantus Per Unit Charge) 0 units SQ HS [facility]; Protocol Stop: 11/07/22 20:59 Levothyroxine Sodium (Levothyroxine Sodium 50 Mcg Tablet) 50 mcg PO DAILYBB [facility] Stop: 11/07/22 06:29 Last Admin: 10/08/22 06:16 Dose: 50 mcg Lisinopril (L[facility]opril 5 Mg Tab) [facility] Stop: 11/07/22 08:59 Last Admin: 10/08/22 08:12 Dose: Not Given Magnesium Hydroxide (Magnesium Hydroxide Susp 30 Ml Udc) 30 ml PO Q12H PRN PRN Reason: Constipation Stop: 11/06/22 16:39 Miscellaneous (Carbohydrates For Hypoglycemia ) 15 - 30 gm PO UD PRN PRN Reason: Hypoglycemia Protocol Stop: 11/06/22 16:39 Miscellaneous Information (Pharmacy Glycemic Mgmt Consult) 1 each N/A UD PRN PRN Reason: Consult Stop: 11/06/22 16:39 Polyethylene Glycol (Polyethylene (Miralax) 17 Gm Pack) 17 gm PO DAILY PRN PRN Reason: Constipation Stop: 11/06/22 16:39 Venlafaxine HCl (Venlafaxine Hcl Xr 150 Mg Capxr) [facility] Stop: 11/07/22 08:59 Last Admin: 10/08/22 08:10 Dose: 150 mg
[2022-10-08] MEDS ORDERED: LANTUS PER UNIT CHARGE SQ SCH ×2 (21:00)
[2022-10-08] MEDS: ATORVASTATIN 20 MG TAB PO SCH (21:00)
[2022-10-08] MEDS ORDERED: traMADol HCL 50 MG TABLET PO PRN (21:12)
[2022-10-09] MEDS: LEVOTHYROXINE SODIUM 50 MCG TABLET PO SCH (05:42)
[2022-10-09] MEDS: VENLAFAXINE HCL XR 150 MG CAPXR PO SCH (08:09)
[2022-10-09] MEDS: INSULIN ASPART PER UNIT CHARGE SC SCH (08:09)
[2022-10-09] MEDS: ENOXAPARIN INJ 30 MG/0.3 ML SYR SQ SCH (08:10)
[2022-10-09 08:20] LABS: Basophils # (auto) 0.03 K/uL (0-0.2); Basophils % (auto) 0.3 %; Eosinophils # (auto) 0.02 K/uL (0-0.50); Eosinophils % (auto) 0.2 %; Hematocrit (blood only) 37.4 % (37.0-47.0); Immature Granulocytes # (auto) 0.01 K/uL (0.01-0.20); Immature Granulocytes % (auto) 0.1 %; Lymphocytes # (auto) 3.17 K/uL (1.2-3.4); Lymphocytes % (auto) 33.9 %; Mean Corpuscular Hemoglobin 28.4 pg (25.0-34.0); Mean Corpuscular Hgb Conc 32.1 g/dL (32.0-36.0); Mean Corpuscular Volume 88.4 fL (80.0-100.0); Mean Platelet Volume 11.4 fL (9.4-12.4); Monocytes # (auto) 0.58 K/uL (0.11-0.59); Monocytes % (auto) 6.2 %; Neutrophils # (auto) 5.55 K/uL (1.40-6.50); Neutrophils % (auto) 59.3 %; Platelet Count 263 K/uL (130-400); RDW Coefficient of Variation 14.2 % (11.5-14.5); RDW Standard Deviation 45.9 fL (36.4-46.3); Red Blood Count 4.23 M/uL (4.20-5.40); White Blood Count 9.36 K/ul (4.8-10.8)
[2022-10-09 08:41] LABS: BUN Creatinine Ratio 21.8 (10-20); Creatinine Clr Calc Pharmacy 107.7 ml/min; Est GFR (African American) 120.7 ml/min; Est GFR (Non-African American) 104.1 ml/min; Potassium 3.9 mmol/L (3.5-5.1)
[2022-10-09] MEDS ORDERED: LANTUS PER UNIT CHARGE SQ SCH (09:00)
--- NOTE | 2022-10-09 10:24 | Hospitalist Progress Note ---
Date of Service October 09, 2022 Assessment & Plan (1) Nausea and vomiting: (2) Diabetes: (3) Hypothyroidism: (4) Hyperlipidemia: (5) Depression: (6) History of cholecystectomy: (7) HTN (hypertension): Plan 56-year-old female with history of diabetes type 2, hypertension, hyperli pidemia, depression, history of cholecystectomy who presented to ED yesterday with sudden onset nausea and vomiting. Work-up unremarkable so far. Improved with conservative management Nausea and Vomiting: Likely secondary to viral gastroenteritis Work-up unremarkable so far. Improving with conservative management. No nausea vomiting since admission. Tolerating liquid diet without issues. Gradually advance as tolerated. She is status post cholecystectomy. She sees gastroenterology as outpatient. States she had similar episode about 5 years back and had work-up with EGD/gastric emptying study was unremarkable. She was however found to have MCCANN and her symptoms improved with diet changes. She has a follow-up with GI in November and plan for MRI liver. No more nausea and/or vomiting, labs are unremarkable Has been tolerating regular diet and ambulating without any difficulties Discharged home this afternoon Leukocytosis-probably reactive. Coming down nicely without any antibiotics. Blood cultures are negative White count being normalized Insulin Dependent Diabetes Mellitus: Takes Jardiance, Regular Insulin, Xultopy, and Metformin; hold while inpatient Continue insulin, adjust as indicated. No acute issues HTN: BP low normal. Will hold lisinopril Will restart lisinopril on discharge HLD: Takes Atorvastatin; continue Recent lipid panel: 08/25/22: TG 133, HDL 48, LDL 53 Depression: Takes Venlafaxine; continue Increased stress level currently- taking care of her 98-year-old mom, her sister being diagnosed with cancer, her 8-year-old granddaughter. She saw a therapist in the past which was helpful and is going to see her again as outpatient Disposition: Advancing diet. Anticipate discharge tomorrow if continues to do well Code: Full Code VTE Prophylaxis: Lovenox SQ She will be discharged home this afternoon Admission and Anticipated Discharge Date Admission Date: October 07, 2022 Subjective 10/09/2022 The patient was seen and examined in medical telemetry unit She has been feeling much better and denies any abdominal pain, nausea and or vomiting No diarrhea, no fever and no chills She has been tolerating regular diet and wants to go home Review of Systems Review of Systems: All systems reviewed and are unremarkable except as noted below Physical Exam Physical Exam: Lying in bed comfortably Constitutional: well developed, well nourished and + obese; not ill appearing Eyes: PERRL, conjunctivae normal, anicteric sclerae ENMT: external ear and nose normal, oropharynx normal Neck: trachea midline, no thyromegaly Respiratory: no respiratory distress Auscultation: lungs clear to auscultation bilaterally Cardiovascular: Rate/Rhythm: regular rate and regular rhythm; not tachycardic Heart Sounds: normal S1 and normal S2; no murmur Extremities: no edema Gastrointestinal (Abdomen): Inspection/Auscultation: normal bowel sounds; abdomen not distended Percussion/Palpation: abdomen soft; abdomen nontender Musculoskeletal: No acute arthritis involving any of the joints Neurologic: Alert, awake and oriented x3. No focal sensory or motor deficit appreciated Psychiatric: A+Ox3, euthymic affect Lymphatic: no cervical or axillary lymphadenopathy Results & Data Results & Data Vital Signs (Past 12 Hours) Vital Signs Temp Pulse Pulse Resp BP Pulse Ox O2 Del Method 10/09/22 07:33 36.7 C 68 18 114/70 95 Room Air 10/09/22 07:23 64 10/09/22 03:00 36.7 C 64 18 96/63 L 94 Room Air Laboratory Results Short CBC 10/09/22 Range/Units 07:45 WBC 9.36 (4.8-10.8) K/ul Hgb 12.0 (12.0-16.0) g/dl Hct 37.4 (37.0-47.0) % Plt Count 263 (130-400) K/uL BMP 10/09/22 07:45 Sodium 144 Potassium 3.9 Chloride 107 Carbon Dioxide 33 H BUN 12 Creatinine 0.55 L Glucose 117 H Calcium 9.0 Medications Administered Current Inpatient Medications Acetaminophen (Acetaminophen 325 Mg Tab) 650 mg PO Q4H PRN PRN Reason: Pain or Fever Stop: 11/06/22 16:39 Al Hydrox/Mg Hydrox/Simethicone (Aluminum/Magnesium Susp 30 Ml Udc) 15 ml PO Q4H PRN PRN Reason: Dyspepsia Stop: 11/06/22 16:39 Atorvastatin Calcium (Atorvastatin 20 Mg Tab) 20 mg PO HS MARVA Stop: 11/06/22 20:59 Last Admin: 10/08/22 21:00 Dose: 20 mg Dextrose (Dextrose 50% 50 Ml Syringe) 25 - 50 ml IV UD PRN; Protocol PRN Reason: Hypoglycemia Protocol Stop: 11/06/22 16:39 Enoxaparin Sodium (Enoxaparin Inj 30 Mg/0.3 Ml Syr) 30 mg SQ QAM [facility] Stop: 11/07/22 08:59 Last Admin: 10/09/22 08:10 Dose: Not Given Glucagon (Glucagon For Inj 1 Mg Vial) 1 mg SQ UD PRN; Protocol PRN Reason: Hypoglycemia Protocol Stop: 11/06/22 16:39 Glucose (Glucose 10 Tab/Tube) 4 - 8 tab PO UD PRN; Protocol PRN Reason: Hypoglycemia Treatment Stop: 11/06/22 16:39 Glucose (Glucose 40% Gel 15 Gm Tube) 15 - 30 gm PO UD PRN; Protocol PRN Reason: Hypoglycemia Protocol Stop: 11/06/22 16:39 Insulin Aspart (Insulin Aspart Per Unit Charge) 0 units SC ACHS [facility] Stop: 11/06/22 17:59 Last Admin: 10/09/22 08:09 Dose: 2 units Insulin Glargine (Lantus Per Unit Charge) 10 units SQ QAM [facility] Stop: 11/08/22 08:59 Last Admin: 10/09/22 09:21 Dose: 10 units Levothyroxine Sodium (Levothyroxine Sodium 50 Mcg Tablet) 50 mcg PO DAILYBB [facility] Stop: 11/07/22 06:29 Last Admin: 10/09/22 05:42 Dose: 50 mcg Lisinopril (Lisinopril 5 Mg Tab) 5 [facility] Stop: 11/07/22 08:59 Last Admin: 10/08/22 08:12 Dose: Not Given Magnesium Hydroxide (Magnesium Hydroxide Susp 30 Ml Udc) 30 ml PO Q12H PRN PRN Reason: Constipation Stop: 11/06/22 16:39 Miscellaneous (Carbohydrates For Hypoglycemia ) 15 - 30 gm PO UD PRN PRN Reason: Hypoglycemia Protocol Stop: 11/06/22 16:39 Miscellaneous Information (Pharmacy Glycemic Mgmt Consult) 1 each N/A UD PRN PRN Reason: Consult Stop: 11/06/22 16:39 Polyethylene Glycol (Polyethylene (Miralax) 17 Gm Pack) 17 gm PO DAILY PRN PRN Reason: Constipation Stop: 11/06/22 16:39 Tramadol HCl (Tramadol Hcl 50 Mg Tablet) 50 mg PO Q6H PRN PRN Reason: Pain Stop: 11/07/22 21:11 Last Admin: 10/08/22 21:34 Dose: 50 mg Venlafaxine HCl (Venlafaxine Hcl Xr 150 Mg Capxr) 150 mg PO [facility] Stop: 11/07/22 08:59 Last Admin: 10/09/22 08:09 Dose: 150 mg
--- NOTE | 2022-10-10 08:10 | Discharge Summary ---
Date of Service October 09, 2022 Admission HPI Per Admitting Provider Ms. Suarez is a 56 year old male who presented to the [facility] as she started to have nausea and vomiting when she was at work today. 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 Today she started to feel ill and 20 minutes after feeling ill she had an episode of vomiting for which was just food. She was feeling clammy and diaphoretic and checked her blood sugar which was 160. Her glucose this morning was 120. She reports being relatively controlled with her diabetes. Patient reports that last week she was experiencing URI symptoms including aches and fever of 100 degrees. She did test for COVID at that time and was negative. on arrival to the ED; she was found to be hypotensive SBP 88. She responded well to [address] and pelvic CT negative for SBO, Moderate to large amount of stool within the left colon and rectum. She did have a skin excision a few days ago but does not appear infected. Leukocytosis; WBC 22.93, glucose 246; she is a known insulin dependent diabetic. Additional PMH includes: HTN, HLD, depression, hypothyroidism, MCCANN status post liver biopsy, and history of cholecystectomy. Patient denies headache, dizziness, shortness of breath, chest pain, palpitations, diarrhea or bowel changes, appetite changes, recent falls or trauma, recent swelling of lower extremities. Pt denies change of . Patient is sitting upright in her hospital bed in no apparent distress. Patient is AAOx4 and able to answer all questions appropriately. Patient is hemodynamically stable not requiring any supplemental oxygen and is euvolemic on exam. 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 She does have an estranged relationship with her son. No appointed decision-maker on her behalf. Confirmed patient does have a penicillin allergy that does cause hives. It is suspected that her nausea and vomiting may likely be stress related. Patient is afebrile and appears nontoxic. If she does become febrile or infectious will initiate antibiotics. Patient will be admitted for further evaluation and management. Please see A/P for further details. Admission Exam Per Admitting Provider Physical Exam: Neuro: AAOx4, PERRLA, no aphagia, memory changes, CNII-XII grossly intact HEENT: head normocephalic, moist mucus membranes CV: S1/S2, (-) M/G/R, (-) edema, cap refill < 3 seconds Resp: Lungs CTA in all [place]. On RA GI: Abdomen S/NT/ND, Ax4 bowel sounds, (-) CVA tenderness Musculoskeletal: 5/5 B/L UE strength, 5/5 B/L LE strength. No gait disturbance Skin: (-) rashes , (-) erythema. Psych: euthymic mood Principal Diagnosis Possible viral gastroenteritis, insulin-dependent diabetes, hypertension Discharge Exam Lying in bed comfortably Constitutional well developed, well nourished and + obese; not ill appearing Eyes PERRL, conjunctivae normal, anicteric sclerae ENMT external ear and nose normal, oropharynx normal Neck trachea midline, no thyromegaly Respiratory no respiratory distress Auscultation: lungs clear to auscultation bilaterally Cardiovascular Rate/Rhythm: regular rate and regular rhythm; not tachycardic Heart Sounds: normal S1 and normal S2; no murmur Extremities: no edema Gastrointestinal (Abdomen) Inspection/Auscultation: normal bowel sounds; abdomen not distended Percussion/Palpation: abdomen soft; abdomen nontender Psychiatric A+Ox3, euthymic affect Lymphatic no cervical or axillary lymphadenopathy Discharge Data Allergies Allergy/AdvReac Type Severity Reaction Status Date / Time tree nut Allergy Severe swelling Verified 10/07/22 15:52 face/lips/tongue Penicillins Allergy Intermediate hives Verified 10/07/22 15:52 morphine AdvReac Intermediate vomit Verified 10/07/22 15:52 Consultations 10/07/22 16:26 ED Decision to Admit Stat Ordered Studies 10/07/22 14:31 CT abd pelvis IV con only Stat Hospital Course (1) Nausea and vomiting: (2) Diabetes: (3) Hypothyroidism: (4) Hyperlipidemia: (5) Depression: (6) History of cholecystectomy: (7) HTN (hypertension): Plan 56-year-old female with history of diabetes type 2, hypertension, hyperlipidemia, depression, history of cholecystectomy who presented to ED yesterday with sudden onset nausea and vomiting. Work-up unremarkable so far. Improved with conservative management Nausea and Vomiting: Likely secondary to viral gastroenteritis Work-up unremarkable so far. Improving with conservative management. No nausea vomiting since admission. Tolerating liquid diet without issues. Gradually advance as tolerated. She is status post cholecystectomy. She sees gastroenterology as outpatient. States she had similar episode about 5 years back and had work-up with EGD/gastric emptying study was unremarkable. She was however found to have MCCANN and her symptoms improved with diet changes. She has a follow-up with GI in November and plan for MRI liver. No more nausea and/or vomiting, labs are unremarkable Has been tolerating regular diet and ambulating without any difficulties Discharged home this afternoon Leukocytosis-probably reactive. Coming down nicely without any antibiotics. Blood cultures are negative White count being normalized Insulin Dependent Diabetes Mellitus: Takes Jardiance, Regular Insulin, Xultopy, and Metformin; hold while inpatient Continue insulin, adjust as indicated. No acute issues HTN: BP low normal. Will hold lisinopril Will restart lisinopril on discharge HLD: Takes Atorvastatin; continue Recent lipid panel: 08/25/22: TG 133, HDL 48, LDL 53 Depression: Takes Venlafaxine; continue Increased stress level currently- taking care of her 98-year-old mom, her sister being diagnosed with cancer, her 8-year-old granddaughter. She saw a therapist in the past which was helpful and is going to see her again as outpatient Disposition: Advancing diet. Anticipate discharge tomorrow if continues to do well Code: Full Code VTE Prophylaxis: Lovenox SQ She will be discharged home this afternoon Total Time Total Time Spent Total Time Spent (In Minutes): 35 minutes Discharge Plan Discharge Items Patient Disposition: Home - Self-Care Reason For Visit: NAUSEA/VOMITING Discharge Diagnosis: Possible viral gastroenteritis, insulin-dependent diabetes, hypertension Condition on Discharge: Good Activity: Resume your previous activity Non-emergency contact: Primary Care Provider Call non-emergency contact if: you have any medication questions and your symptoms worsen Follow-up/Referrals: Ashia Cuellar MD [Primary Care Provider] - (Your doctor's office will call with an appointment within 7 days) Diet: Carb Consistent or DM2 Addtl Attending Provider Instructions: Please take precautions to avoid falls No change in your medications Take your medications as advised Please give appointment with your healthcare providers Pending Studies at Discharge: No Stand-Alone Forms: My [employer], Smoking Cessation Medications and DC Order Prescriptions: Continued levothyroxine 50 mcg Tablet 50 mcg PO DAILYBB metformin 1,000 mg Tablet 1,000 mg PO BIDM venlafaxine 150 mg Tablet Extended Release 24hr 150 mg PO QAM Rx Instructions: DO NOT CRUSH, CHEW OR CUT. atorvastatin 20 mg tablet 20 mg PO HS lisinopril 5 mg tablet 5 mg PO QAM clobetasol 0.05 % ointment 1 applic TOPICAL BID PRN (Reason: Rash) insulin aspart U-100 [Novolog FlexPen U-100 Insulin] 100 unit/mL (3 mL) insulin pen 0 unit SUBCUT DIRECTED Rx Instructions: INJECT 9 UNITS UNDER THE SKIN DAILY BEFORE BREAKFAST, INCREASE BY 1 UNIT EVERY 3 DAYS UNTIL BG IS GREATER THAN 150 BEFORE LUNCH. Jardiance 25 mg tablet 25 mg PO QAM Xultophy 100/3.6 100 unit-3.6 mg /mL (3 mL) insulin pen 28 unit SUBCUT DAILY Discharge Orders: Discharge Order (Routine); Ordered 10/09/22 Ordered By: Markel Jimenez Admission Data Admit Date/Time: 10/07/22 16:41 Attending Provider: Markel Jimenez Admit Provider: Jsor Berry Primary Care Provider: Ashia Cuellar Other Providers: Josr Berry ; Curtis Miner Other Interventions: Discharge Summary Assessment (RN) Last Done: 10/09/22 11:36
== END 2022-10-09 12:25 | disposition home or self-care (01) | DRG 392 ==
LOC: ED 12:25 → SUATTDRO 16:41 → EDINP 16:41 → 2N 20:20

== ENCOUNTER 2025-02-11 16:16 | Inpatient (IN) ==
--- NOTE | 2025-02-11 16:24 | Emergency Department Note ---
Impression & Plan Nausea & vomiting, Leukocytosis, Elevated lactic acid level, Acute dehydration, Elevated troponin, Rhinovirus infection, Enterovirus infection ED Provider Note HISTORY OF PRESENT ILLNESS: Patient is a 59-year-old female presenting with nausea and vomiting. Patient reports that symptoms started suddenly about 1 hour prior to arrival. She denies any diarrhea or abdominal pain. Denies any chest pain or shortness of breath. Denies any fevers, but states that she "feels so cold." She reports that yesterday she started having runny nose and "cold." She denies any recent sick contact exposures. Denies any headache or changes in vision. She was given 400 cc of fluid with EMS and 4 mg IV Zofran prehospital. On arrival, she is complaining of significant nausea and states she feels like she needs to vomit again. ROS: as above PHYSICAL EXAM: Constitutional: Patient appears in no acute distress. HENT: Head: Normocephalic and atraumatic. Eyes: EOMI, PERRL Mouth/Throat: Mucous membranes moist. Neck: Trachea midline. Neck supple. Cardiovascular: RRR, No murmurs, rubs or gallops. Intact distal pulses. Pulmonary/Chest: No respiratory distress. Breath sounds clear and equal bilaterally. No wheezes or rales. Abdominal: Abdomen soft, no tenderness, rebound or guarding. Musculoskeletal: No edema, tenderness or deformity noted. Skin: Warm and dry. No rash, erythema, pallor or cyanosis Psychiatric: Appropriate mood and affect for situation. Neurological: Alert and keenly responsive. CN II-XII grossly intact, moving all extremities equally and fully. MDM: - Vitals signs showed hypertension and tachycardia - History obtained via patient. History as above. - Chronic conditions affecting care: HTN; hypothyroidism; GERD; DM-2 - Differential diagnoses include, but are not limited to: Viral syndrome; bowel obstruction; ACS; electrolyte abnormality; UTI; gastroenteritis; ischemic colitis - Order placed for continuous cardiac monitoring. At this time, monitor showed rate of 96 bpm with normal sinus rhythm, per my interpretation. - External medical records reviewed. Discharge summary dated 10/11/2022 was reviewed. Patient was admitted at that time secondary to possible gastro enteritis from a viral infection. - EKG image interpreted by myself showed normal sinus rhythm. Rate 86 bpm. QT 348. No acute ischemic changes. - Laboratory workup interpreted by myself showed leukocytosis (WBC 19.39) with neutrophil predominance; elevated lactic acid (6.2); stable electrolytes; hyperglycemia (glucose 231) with elevated anion gap (14); normal AST/ALT; normal lipase; normal procalcitonin; elevated troponin (19.3) - Blood cultures obtained - Patient given 2L NS in ER. Given 25 mg IV benadryl and 5 mg IV compazine for nausea. Given 2g IV rocephin empirically. - UA negative for infection. Noted to have glucosuria and ketonuria. - Viral respiratory panel positive for rhinovirus/enterovirus - CT abdomen/pelvis with IV contrast showed large amount of formed stool in the distal descending and sigmoid colon with liquid present throughout. This appears similar to 2022 examination and could represent a fecal impaction. - Repeat lactate after fluids improving but still elevated at 2.7 - Leukocytosis is likely reactive from patient's multiple hours of vomiting. Her elevated troponin is likely in the setting of acute stress reaction given her vomiting and acute dehydration. - Discussion was had with community case manager about patient's case and need for admission - Hospitalist consulted for admission - Patient admitted to [facility] for further evaluation and management. ASSESSMENT AND PLAN: Diagnosis: nausea and vomiting; leukocytosis; acute dehydration; elevated troponin; rhinovirus infection; enterovirus infection; elevated lactic acid level Plan: Admit Past Med/Surg History Problem List (Updated 02/11/25 @ 20:26 by Cindi Early MD) Enterovirus infection (Acute) Rhinovirus infection (Acute) Elevated troponin (Acute) Acute dehydration (Acute) Elevated lactic acid level (Acute) Leukocytosis (Acute) Nausea & vomiting (Acute) Hypotensive episode (Acute) Leukocytosis (Acute) Weakness (Acute) Nausea & vomiting (Acute) HTN (hypertension) Depression Hyperlipidemia Hypothyroidism Nausea and vomiting Encounter for pre-operative examination Diabetes (Chronic) Hyperthyroidism (Chronic) Epigastric abdominal pain (Acute) Epigastric abdominal pain (Acute) Medical History (Updated 02/11/25 @ 20:26 by Cindi Early MD) Nausea and vomiting after administration of anesthetic agent Spinal stenosis GERD (gastroesophageal reflux disease) Diabetes mellitus, type 2 Surgical History History of needle biopsy benign right breast History of lumbar laminectomy L4-L5 History of cholecystectomy History of colonoscopy History of tooth extraction History of wisdom tooth extraction History of intraocular lens implant bilt Family History Mother Family history of diabetes mellitus Sister Family history of diabetes mellitus 2 Other No family history of adverse response to anesthesia Social History Smoking Status: Unknown if ever smoked Second Hand Exposure: Yes (parents and sisters smoked); Do You Dip or Chew Tobacco: No; Hx Alcohol Use: No Hx Substance Use: No Preferred Language: Jamaican Communication Ability: Effective Architect Naval Required: No Beliefs That Will Affect Care: None Current Living Situation: Alone Feels Safe at Home: Yes Assistive Devices: None Allergies Allergies Allergy/AdvReac Type Severity Reaction Status Date / Time tree nut Allergy Severe swelling Verified 02/11/25 19:10 face/lips/tongue Penicillins Allergy Intermediate hives Verified 02/11/25 19:10 morphine AdvReac Intermediate vomit Verified 02/11/25 19:10 Home Meds Home Medications Medication Instructions Recorded Confirmed levothyroxine 50 mcg tablet 50 mcg PO DAILYBB 10/05/18 02/11/25 metformin 1,000 mg tablet 1,000 mg PO BIDM 10/05/18 02/11/25 venlafaxine 150 mg tablet,extended 150 mg PO QAM 10/05/18 02/11/25 release 24 hr atorvastatin 20 mg tablet 20 mg PO HS 10/07/22 02/11/25 empagliflozin 25 mg tablet 25 mg PO QAM 10/07/22 02/11/25 (Jardiance) lisinopril 5 mg tablet 5 mg PO QAM 10/07/22 02/11/25 semaglutide 1 mg/dose (4 mg/3 mL) 1 mg subcut WK 02/11/25 02/11/25 subcutaneous pen injector (Ozempic) Results & Data (ED) Vital Signs Vital Signs - 24 hr 02/11/25 16:29 02/11/25 16:29 02/11/25 16:29 Temperature 36.5 C 36.5 C Temperature Source Oral Oral Pulse Rate 83 Pulse Rate [Finger] 83 Respiratory Rate 20 20 Blood Pressure 101/63 Blood Pressure [Left Arm] 101/63 Blood Pressure Mean 75 Blood Pressure Mean [Left Arm] 75 Pulse Oximetry 100 100 100 Oxygen Delivery Method Room Air Room Air Room Air Sepsis Recent Fever Within 48 Hours No Sepsis New/Unexplained Change in Mental Status N/A Sepsis Action Taken by Nursing No Action Required 02/11/25 16:53 02/11/25 18:44 02/11/25 20:13 Temperature Temperature Source Pulse Rate 85 Pulse Rate [Finger] 112 H 96 H Respiratory Rate 20 20 Blood Pressure Blood Pressure [Left Arm] 150/91 H 150/91 H Blood Pressure Mean Blood Pressure Mean [Left Arm] 110 110 Pulse Oximetry 99 95 Oxygen Delivery Method Room Air Room Air Sepsis Recent Fever Within 48 Hours Sepsis New/Unexplained Change in Mental Status Sepsis Action Taken by Nursing Laboratory Data 02/11/25 16:30 02/11/25 16:30 Lab Results 02/11/25 02/11/25 02/11/25 Range/Units 16:30 17:09 18:44 WBC 19.39 H (4.8-10.8) K/ul RBC 4.66 (4.20-5.40) M/uL Hgb 14.3 (12.0-16.0) g/dl Hct 43.1 (37.0-47.0) % MCV 92.5 (80.0-100.0) fL MCH 30.7 (25.0-34.0) pg MCHC 33.2 (32.0-36.0) g/dL RDW Std Deviation 45.7 (36.4-46.3) fL RDW Coeff of Mallory 13.4 (11.5-14.5) % Plt Count 381 (130-400) K/uL MPV 10.9 (9.4-12.4) fL Immature Gran % (Auto) 0.8 % Neut % (Auto) 84.7 % Lymph % (Auto) 12.2 % [place] % (Auto) 1.7 % Eos % (Auto) 0.2 % Baso % (Auto) 0.4 % Neut # (Auto) 16.45 H (1.40-6.50) K/uL Lymph # (Auto) 2.37 (1.20-3.40) K/uL [place] # (Auto) 0.32 (0.11-0.59) K/uL Eos # (Auto) 0.03 (0.00-0.50) K/uL Baso # (Auto) 0.07 (0.00-0.20) K/uL Immature Gran # (Auto) 0.15 (0.01-0.20) K/uL Sodium 142 (136-145) mmol/L Potassium 3.6 (3.5-5.1) mmol/L Chloride 105 (98-107) mmol/L Carbon Dioxide 23 (21-32) mmol/L Anion Gap 14 H (3-11) BUN 16 (6-23) mg/dl Creatinine 0.72 (0.6-1.2) mg/dl Est Cr Clr Drug Dosing 68.7 ml/min eGFR 95.66 BUN/Creatinine Ratio 22.2 H (10-20) Glucose 231 H (70-99(Fasting)) mg/dl POC Glucose (70-99) mg/dl Lactate 6.2 H* (0.4-2.0) mmol/L Calcium 9.6 (8.6-10.3) mg/dl Magnesium 1.7 (1.7-2.4) mg/dl Total Bilirubin 0.3 (0.2-1.0) mg/dl AST 22 (13-39) U/L ALT 26 (7-52) U/L Alkaline Phosphatase 114 H (34-104) U/L Troponin I High Sens 19.3 H (0-14) pg/ml Total Protein 7.5 (6.0-8.3) gm/dl Albumin 4.3 (3.4-5.0) gm/dl Globulin 3.2 (2.5-4.0) gm/dl Albumin/Globulin Ratio 1.3 (0.9-2) Lipase 45 (11-82) U/L Procalcitonin 0.13 (0-0.5) ng/ml Urine Color Yellow Urine Appearance Clear (Clear) Urine pH 5.5 (4.5-7.5) Ur Specific [place] 1.033 H (1.000-1.030) Urine Protein Trace H (Negative) Urine Glucose (UA) 3+ H (Negative) Urine Ketones Trace H (Negative) Urine Blood Negative (Negative) Urine Nitrite Negative (Negative) Urine Bilirubin Negative (Negative) Urine Urobilinogen Negative (Negative) Ur Leukocyte Esterase Negative (Negative) Urine WBC (Auto) 0-5 (0-5) /hpf Urine RBC (Auto) 0-2 (0-2) /hpf U Hyaline Cast (Auto) 6-10 H (0-2) /lpf U Epithel Cells (Auto) 0-2 (0-2) /hpf Urine Bacteria (Auto) 1+ H (None Seen) Urine Comment Adenovirus (PCR) (NotDetected) B. pertussis DNA (PCR) (NotDetected) B.parapertussis DNA PCR (NotDetected) C. pneumoniae DNA (PCR) (NotDetected) Coronavirus OC43 (PCR) (NotDetected) Coronavirus HKU1 (PCR) (NotDetected) Coronavirus 229E (PCR) (NotDetected) SARS-CoV-2 (PCR) (NotDetected) Coronavirus NL63 (PCR) (NotDetected) Human Metapneumovir PCR (NotDetected) Influenza Type A (PCR) (NotDetected) Influenza Type B (PCR) (NotDetected) M. pneumoniae (PCR) (NotDetected) Parainfluenza 1 (PCR) (NotDetected) Parainfluenza 2 (PCR) (NotDetected) Parainfluenza 3 (PCR) (NotDetected) Parainfluenza 4 (PCR) (NotDetected) RSV (PCR) (NotDetected) Entero/Rhino (PCR) (NotDetected) 02/11/25 02/11/25 02/11/25 Range/Units 19:18 19:36 Unknown WBC (4.8-10.8) K/ul RBC (4.20-5.40) M/uL Hgb (12.0-16.0) g/dl Hct (37.0-47.0) % MCV (80.0-100.0) fL MCH (25.0-34.0) pg MCHC (32.0-36.0) g/dL RDW Std Deviation (36.4-46.3) fL RDW Coeff of Mallory (11.5-14.5) % Plt Count (130-400) K/uL MPV (9.4-12.4) fL Immature Gran % (Auto) % Neut % (Auto) % Lymph % (Auto) % [place] % (Auto) % Eos % (Auto) % Baso % (Auto) % Neut # (Auto) (1.40-6.50) K/uL Lymph # (Auto) (1.20-3.40) K/uL [place] # (Auto) (0.11-0.59) K/uL Eos # (Auto) (0.00-0.50) K/uL Baso # (Auto) (0.00-0.20) K/uL Immature Gran # (Auto) (0.01-0.20) K/uL Sodium (136-145) mmol/L Potassium (3.5-5.1) mmol/L Chloride (98-107) mmol/L Carbon Dioxide (21-32) mmol/L Anion Gap (3-11) BUN (6-23) mg/dl Creatinine (0.6-1.2) mg/dl Est Cr Clr Drug Dosing ml/min eGFR BUN/Creatinine Ratio (10-20) Glucose (70-99(Fasting)) mg/dl POC Glucose 119 H (70-99) mg/dl Lactate 2.7 H* (0.4-2.0) mmol/L Calcium (8.6-10.3) mg/dl Magnesium (1.7-2.4) mg/dl Total Bilirubin (0.2-1.0) mg/dl AST (13-39) U/L ALT (7-52) U/L Alkaline Phosphatase (34-104) U/L Troponin I High Sens (0-14) pg/ml Total Protein (6.0-8.3) gm/dl Albumin (3.4-5.0) gm/dl Globulin (2.5-4.0) gm/dl Albumin/Globulin Ratio (0.9-2) Lipase (11-82) U/L Procalcitonin (0-0.5) ng/ml Urine Color Urine Appearance (Clear) Urine pH (4.5-7.5) Ur Specific [place] (1.000-1.030) Urine Protein (Negative) Urine Glucose (UA) (Negative) Urine Ketones (Negative) Urine Blood (Negative) Urine Nitrite (Negative) Urine Bilirubin (Negative) Urine Urobilinogen (Negative) Ur Leukocyte Esterase (Negative) Urine WBC (Auto) (0-5) /hpf Urine RBC (Auto) (0-2) /hpf U Hyaline Cast (Auto) (0-2) /lpf U Epithel Cells (Auto) (0-2) /hpf Urine Bacteria (Auto) (None Seen) Urine Comment Adenovirus (PCR) Not Detected (NotDetected) B. pertussis DNA (PCR) Not Detected (NotDetected) B.parapertussis DNA PCR Not Detected (NotDetected) C. pneumoniae DNA (PCR) Not Detected (NotDetected) Coronavirus OC43 (PCR) Not Detected (NotDetected) Coronavirus HKU1 (PCR) Not Detected (NotDetected) Coronavirus 229E (PCR) Not Detected (NotDetected) SARS-CoV-2 (PCR) Not Detected (NotDetected) Coronavirus NL63 (PCR) Not Detected (NotDetected) Human Metapneumovir PCR Not Detected (NotDetected) Influenza Type A (PCR) Not Detected (NotDetected) Influenza Type B (PCR) Not Detected (NotDetected) M. pneumoniae (PCR) Not Detected (NotDetected) Parainfluenza 1 (PCR) Not Detected (NotDetected) Parainfluenza 2 (PCR) Not Detected (NotDetected) Parainfluenza 3 (PCR) Not Detected (NotDetected) Parainfluenza 4 (PCR) Not Detected (NotDetected) RSV (PCR) Not Detected (NotDetected) Entero/Rhino (PCR) DETECTED A (NotDetected) Administered Medications Lactated Ringer's (Lr) 1,000 mls @ 250 mls/hr IV .Q4H ONE Stop: 02/11/25 23:48 Last Admin: 02/11/25 19:56 Dose: 250 mls/hr Documented By: MANOLO Magnesium Sulfate/Dextrose (Magnesium Sulfate / D5w) 1 gm in 100 mls @ 50 mls/hr IV Q2H MARVA Stop: 02/11/25 23:59 Last Admin: 02/11/25 19:56 Dose: 50 mls/hr Documented By: MANOLO Discontinued Medications Diphenhydramine HCl (Diphenhydramine 50 Mg/Ml Vial) 25 mg IV NOW STA Stop: 02/11/25 16:22 Last Admin: 02/11/25 16:41 Dose: 25 mg Documented By: MANOLO Sodium Chloride (Nss) 1,000 mls @ 999 mls/hr IV .Q1H1M ONE Stop: 02/11/25 17:21 Last Infusion: 02/11/25 17:33 Dose: Infused Documented By: Admin: 02/11/25 16:41 Dose: 999 mls/hr Documented By: MANOLO Prochlorperazine (Compazine) 1 mls @ 1 mls/min IV ONE ONE Stop: 02/11/25 16:22 Last Admin: 02/11/25 16:41 Dose: 1 mls/min Documented By: MANOLO Sodium Chloride (Nss) 1,000 mls @ 999 mls/hr IV .Q1H1M ONE Stop: 02/11/25 18:29 Last Infusion: 02/11/25 19:52 Dose: Infused Documented By: Admin: 02/11/25 17:59 Dose: 999 mls/hr Documented By: MANOLO Ceftriaxone Sodium (Rocephin) 2,000 mg in 50 mls @ 100 mls/hr IV NOW STA Stop: 02/11/25 17:58 Last Infusion: 02/11/25 18:41 Dose: Infused Documented By: Admin: 02/11/25 17:59 Dose: 100 mls/hr Documented By: MANOLO Ioversol (Optiray 320 100ml) 90 ml IV ONCE ONE Stop: 02/11/25 18:31 Last Admin: 02/11/25 18:31 Dose: 90 ml Documented By: LISANDRO Imaging Data Radiologist's Impression: Abdomen/Pelvis CT 02/11/25 17:29 EXAMINATION: Abdomen and pelvis CT with CLINICAL HISTORY: Nausea vomiting diarrhea PRIORS: None TECHNIQUE: Contiguous axial images were obtained through the abdomen and pelvis with the use of intravenous contrast. Sagittal and coronal reformations are supplied. FINDINGS: Lung bases unremarkable. Liver mildly enlarged measuring 17.2 cm. Gallbladder surgically absent. The stomach is under distended and not further evaluated. Large amount of formed stool present in the distal descending and sigmoid colon with fluid present throughout the lumen of the large bowel proximal to this. Fluid-filled loop of small bowel present in the left upper quadrant measuring 3.3 cm, image 51, series 2. Fluid-filled loop of small bowel in the right Long pelvis measuring 2.5 cm, not dilated. No bowel wall thickening or pericolonic inflammatory change. The pancreas, spleen, adrenals, aorta, IVC and kidneys are morphologically unremarkable. The overall appearance is similar to the 2022 examination. No ascites or adenopathy. Uterus is present and unremarkable. No acute osseous abnormality. Moderate osseous demineralization noted with degenerative change present. IMPRESSION: Large amount of formed stool in the distal descending and sigmoid colon with liquid present throughout the lumen of the colon proximal to this, as well as a fluid-filled loops of small bowel in the left upper quadrant. The appearance of the bowel was similar on the 2022 examination and may represent fecal impaction. No bowel wall thickening or pericolonic inflammatory change. Close clinical and imaging follow-up suggested Electronically signed by Kira Manriquez 02-11-2025 6:56 PM Discharge Plan Visit Data Chief Complaint: Illness Stated Complaint: NAUSA VOMITING ED Provider: Cindi Early Discharge Problem: Nausea & vomiting, Leukocytosis, Elevated lactic acid level, Acute dehydration, Elevated troponin, Rhinovirus infection, Enterovirus infection Condition: Fair Forms Stand Alone Forms: My [facility] Prescriptions Prescriptions: No Action levothyroxine 50 mcg Tablet 50 mcg PO DAILYBB metformin 1,000 mg Tablet 1,000 mg PO BIDM venlafaxine 150 mg Tablet Extended Release 24hr 150 mg PO QAM Rx Instructions: DO NOT CRUSH, CHEW OR CUT. atorvastatin 20 mg tablet 20 mg PO HS lisinopril 5 mg tablet 5 mg PO QAM Jardiance 25 mg tablet 25 mg PO QAM Ozempic 1 mg/dose (4 mg/3 mL) pen injector 1 mg SUBCUT WK Referrals Referrals: Ashia Cuellar MD [Primary Care Provider] -
[2025-02-11] MEDS: diphenhydrAMINE 50 MG/ML VIAL IV STA (16:41)
[2025-02-11] MEDS: PROCHLORPERAZINE 1 ML IV ONE (16:41)
[2025-02-11] MEDS: SODIUM CHLORIDE 0.9% 1,000 ML IV ONE ×2 (16:41→17:59)
[2025-02-11 16:52] LABS: Hematocrit (blood only) 43.1 % (37.0-47.0); Hemoglobin 14.3 g/dl (12.0-16.0); Immature Granulocytes # (auto) 0.15 K/uL (0.01-0.20); Immature Granulocytes % (auto) 0.8 %; Mean Corpuscular Hemoglobin 30.7 pg (25.0-34.0); Mean Corpuscular Volume 92.5 fL (80.0-100.0); Platelet Count 381 K/uL (130-400); RDW Standard Deviation 45.7 fL (36.4-46.3); Red Blood Count 4.66 M/uL (4.20-5.40); White Blood Count 19.39 K/ul (4.8-10.8)
[2025-02-11 17:10] LABS: Alanine Aminotransferase 26.0 U/L (7-52); Albumin Globulin Ratio 1.3 (0.9-2); Albumin Level 4.3 gm/dl (3.4-5.0); Alkaline Phosphatase 114.0 U/L (34-104); Anion Gap 14.0 (3-11); Bilirubin,Total 0.3 mg/dl (0.2-1.0); Blood Urea Nitrogen 16.0 mg/dl (6-23); Calcium 9.6 mg/dl (8.6-10.3); Carbon Dioxide 23.0 mmol/L (21-32); Chloride 105.0 mmol/L (98-107); Creatinine Clr Calc Pharmacy 68.7 ml/min; Globulin 3.2 gm/dl (2.5-4.0); Glucose 231.0 mg/dl (70-99(Fasting)); Lipase 45.0 U/L (11-82); Magnesium 1.7 mg/dl (1.7-2.4); Potassium 3.6 mmol/L (3.5-5.1); Sodium 142.0 mmol/L (136-145); Total Protein 7.5 gm/dl (6.0-8.3)
[2025-02-11 17:52] LABS: Chlamydia pneumoniae PCR Not Detected (NotDetected); Coronavirus 229E PCR Not Detected (NotDetected); Coronavirus CoV-2 (COVID19)PCR Not Detected (NotDetected); Coronavirus HKU1 PCR Not Detected (NotDetected); Coronavirus NL63 PCR Not Detected (NotDetected); Coronavirus OC43PCR Not Detected (NotDetected); Human Metapneumovirus PCR Not Detected (NotDetected); Parainfluenza Virus 1 PCR Not Detected (NotDetected); Parainfluenza Virus 2 PCR Not Detected (NotDetected); Parainfluenza Virus 3 PCR Not Detected (NotDetected); Parainfluenza Virus 4 PCR Not Detected (NotDetected); Respiratory Syncytial VirusPCR Not Detected (NotDetected); Rhinovirus/Enterovirus PCR DETECTED (NotDetected)
[2025-02-11] MEDS: cefTRIAXone SODIUM 2,000 MG/50 ML BAG IV STA (17:59)
[2025-02-11] MEDS: OPTIRAY 320 100ml IV ONE (18:31)
--- NOTE | 2025-02-11 18:57 | CT Scan Report ---
EXAMINATION: Abdomen and pelvis CT with CLINICAL HISTORY: Nausea vomiting diarrhea PRIORS: None TECHNIQUE: Contiguous axial images were obtained through the abdomen and pelvis with the use of intravenous contrast. Sagittal and coronal reformations are supplied. FINDINGS: Lung bases unremarkable. Liver mildly enlarged measuring 17.2 cm. Gallbladder surgically absent. The stomach is under distended and not further evaluated. Large amount of formed stool present in the distal descending and sigmoid colon with fluid present throughout the lumen of the large bowel proximal to this. Fluid-filled loop of small bowel present in the left upper quadrant measuring 3.3 cm, image 51, series 2. Fluid-filled loop of small bowel in the right Long pelvis measuring 2.5 cm, not dilated. No bowel wall thickening or pericolonic inflammatory change. The pancreas, spleen, adrenals, aorta, IVC and kidneys are morphologically unremarkable. The overall appearance is similar to the 2022 examination. No ascites or adenopathy. Uterus is present and unremarkable. No acute osseous abnormality. Moderate osseous demineralization noted with degenerative change present. IMPRESSION: Large amount of formed stool in the distal descending and sigmoid colon with liquid present throughout the lumen of the colon proximal to this, as well as a fluid-filled loops of small bowel in the left upper quadrant. The appearance of the bowel was similar on the 2022 examination and may represent fecal impaction. No bowel wall thickening or pericolonic inflammatory change. Close clinical and imaging follow-up suggested Electronically signed by Kira Manriquez 02-11-2025 6:56 PM
[2025-02-11 19:11] LABS: Appearance Urine Clear (Clear); Bacteria Urine Automated 1+ (None Seen); Epithelial Cell Urine Auto 0-2 /hpf (0-2); Glucose Urine UA 3+ (Negative); RBC Urine Automated 0-2 /hpf (0-2); WBC Urine Automated 0-5 /hpf (0-5)
[2025-02-11] MEDS: MAGNESIUM SULFATE / D5W 1 GM/100 ML BAG IV SCH (19:56)
[2025-02-11] MEDS: LACTATED RINGER'S 1,000 ML IV ONE ×2 (19:56→23:14)
--- NOTE | 2025-02-11 21:09 | History & Physical Report ---
Date of Service February 11, 2025 Assessment & Plan (1) Enterovirus infection: (2) Rhinovirus infection: (3) Elevated lactic acid level: (4) Leukocytosis: (5) Nausea & vomiting: (6) Elevated troponin: (7) Constipation: (8) Diabetes mellitus, type 2: (9) HTN (hypertension): (10) Depression: (11) Hyperlipidemia: (12) Hypothyroidism: Plan This is a 59-year-old female with PMH of type 2 diabetes, dyslipidemia, hypothyroidism, hypertension, MCCANN, B12 deficiency, depression with anxiety and other medical problems listed below who was brought to ED after developing nausea and intractable vomiting this afternoon and was found to have enterovirus/rhinovirus as well as lactic acidosis in setting of dehydration. Please see addendum for full assessment and plan details per Dr. Velázquez. I spent a total of 50 minutes coordinating, documenting, and providing care for this patient excluding time spent in the performance of separately billed services or time spent by another provider/QHP. History of Present Illness Chief Complaint: Nausea and vomiting Primary Care Provider: Ashia Cuellar MD This is a 59-year-old female with PMH of type 2 diabetes, dyslipidemia, hypothyroidism, hypertension, MCCANN, B12 deficiency, depression with anxiety and other medical problems listed below who was brought to ED after developing nausea and intractable vomiting this afternoon. Patient started to have a runny nose and sore throat on Monday but symptoms were mild and she was able to go to work the past 2 days. Ate lunch at [employer] today and had chicken noodle soup. Upon returning to the office, became suddenly nauseous and had multiple bouts of emesis. Says she vomited up to 9 times but they were small amounts and in quick succession before EMS was called and patient brought in for further evaluation. Since receiving antiemetics here, has not had any recurrent bouts of vomiting. Does not feel nauseous right now. No diarrhea or abdominal pain. Has not had a bowel movement in 5 days, which is typical for her on Ozempic. No fever, chills, chest pain, shortness of breath, dysuria. Takes all medications as prescribed. Allergies Allergy/AdvReac Type Severity Reaction Status Date / Time tree nut Allergy Severe swelling Verified 02/11/25 19:10 face/lips/tongue Penicillins Allergy Intermediate hives Verified 02/11/25 19:10 morphine AdvReac Intermediate vomit Verified 02/11/25 19:10 Home Medications Medication Instructions Recorded Confirmed Type levothyroxine 50 mcg tablet 50 mcg PO DAILYBB 10/05/18 02/11/25 History metformin 1,000 mg tablet 1,000 mg PO BIDM 10/05/18 02/11/25 History venlafaxine 150 mg tablet,extended 150 mg PO QAM 10/05/18 02/11/25 History release 24 hr atorvastatin 20 mg tablet 20 mg PO HS 10/07/22 02/11/25 History empagliflozin 25 mg tablet 25 mg PO QAM 10/07/22 02/11/25 History (Jardiance) lisinopril 5 mg tablet 5 mg PO QAM 10/07/22 02/11/25 History semaglutide 1 mg/dose (4 mg/3 mL) 1 mg subcut WK 02/11/25 02/11/25 History subcutaneous pen injector (Ozempic) Past Med/Surg History Problem List (Updated 02/11/25 @ 23:04 by Tuan Loaiza) Constipation Enterovirus infection (Acute) Rhinovirus infection (Acute) Elevated troponin (Acute) Elevated lactic acid level (Acute) Leukocytosis (Acute) Nausea & vomiting (Acute) HTN (hypertension) Depression Hyperlipidemia Hypothyroidism (Chronic) Medical History Nausea and vomiting after administration of anesthetic agent Spinal stenosis GERD (gastroesophageal reflux disease) Diabetes mellitus, type 2 Surgical History History of needle biopsy benign right breast History of lumbar laminectomy L4-L5 History of cholecystectomy History of colonoscopy History of tooth extraction History of wisdom tooth extraction History of intraocular lens implant bilt Family History Mother Family history of diabetes mellitus Sister Family history of diabetes mellitus 2 Other No family history of adverse response to anesthesia Social History Smoking Status: Former smoker Tobacco Type: Cigarettes Cigarettes Per Day: 10; Smoking End Date: 2016; Second Hand Exposure: Yes (parents and sisters smoked); Do You Dip or Chew Tobacco: No; Hx Alcohol Use: No Hx Substance Use: No Preferred Language: Malay Communication Ability: Effective Dev Ops Engineer Required: No Beliefs That Will Affect Care: None Current Living Situation: Alone Other Information That Helps Us Care for You: No Feels Safe at Home: Yes Safety Concerns: Feels Safe At This Time Assistive Devices: None Review of Systems Review of Systems: At least ten systems reviewed and negative except as noted in the HPI. Physical Exam Physical Exam: General Appearance: WD/WN, vitals as above, NAD, sitting up in bed, pleasant, ill appearing Head: normocephalic, atraumatic Eyes: normal inspection, PERRL, conjunctivae normal, anicteric sclerae ENT: external ear and nose normal, dry mucous membranes of oropharynx Neck: normal visual inspection Respiratory: normal respiratory effort, lungs clear to auscultation, no wheeze, rales, rhonchi. No accessory muscle use Cardiovascular: tachycardic rate, rhythm, normal peripheral pulses, no BLE edema Chest: normal inspection of chest Abdomen/GI: normal bowel sounds, soft, slight TTP LLQ, no hepatosplenomegaly Extremities/Musculoskeletal: no cyanosis or clubbing, extremities motor strength 5/5 Neurologic: PERRL, EOMI, accommodation nl, no face palsy, no dysarthria, CN's II-XI intact bilaterally and moves all extremities Psychiatric: A+Ox3, euthymic affect Skin: no rashes, normal color, warm/dry Results & Data Results & Data Vital Signs (Past 12 Hours) Vital Signs Temp Pulse Pulse Resp BP BP Pulse Ox 02/11/25 20:13 96 H 20 150/91 H 95 02/11/25 18:44 112 H 20 150/91 H 99 02/11/25 16:53 85 02/11/25 16:29 100 02/11/25 16:29 36.5 C 83 20 101/63 100 02/11/25 16:29 36.5 C 83 20 101/63 100 O2 Del Method 02/11/25 20:13 Room Air 02/11/25 18:44 Room Air 02/11/25 16:53 02/11/25 16:29 Room Air 02/11/25 16:29 Room Air 02/11/25 16:29 Room Air Laboratory Results Short CBC 02/11/25 Range/Units 16:30 WBC 19.39 H (4.8-10.8) K/ul Hgb 14.3 (12.0-16.0) g/dl Hct 43.1 (37.0-47.0) % Plt Count 381 (130-400) K/uL BMP 02/11/25 16:30 Sodium 142 Potassium 3.6 Chloride 105 Carbon Dioxide 23 BUN 16 Creatinine 0.72 Glucose 231 H Calcium 9.6 Liver Function 02/11/25 Range/Units 16:30 Total Bilirubin 0.3 (0.2-1.0) mg/dl AST 22 (13-39) U/L ALT 26 (7-52) U/L Alkaline Phosphatase 114 H (34-104) U/L Albumin 4.3 (3.4-5.0) gm/dl Urine 02/11/25 Range/Units 18:44 Urine Color Yellow Urine Appearance Clear (Clear) Urine pH 5.5 (4.5-7.5) Ur Specific [place] 1.033 H (1.000-1.030) Urine Protein Trace H (Negative) Urine Glucose (UA) 3+ H (Negative) Diagnostic Findings Abdomen/Pelvis CT 02/11/25 17:29 EXAMINATION: Abdomen and pelvis CT with CLINICAL HISTORY: Nausea vomiting diarrhea PRIORS: None TECHNIQUE: Contiguous axial images were obtained through the abdomen and pelvis with the use of intravenous contrast. Sagittal and coronal reformations are supplied. FINDINGS: Lung bases unremarkable. Liver mildly enlarged measuring 17.2 cm. Gallbladder surgically absent. The stomach is under distended and not further evaluated. Large amount of formed stool present in the distal descending and sigmoid colon with fluid present throughout the lumen of the large bowel proximal to this. Fluid-filled loop of small bowel present in the left upper quadrant measuring 3.3 cm, image 51, series 2. Fluid-filled loop of small bowel in the right Long pelvis measuring 2.5 cm, not dilated. No bowel wall thickening or pericolonic inflammatory change. The pancreas, spleen, adrenals, aorta, IVC and kidneys are morphologically unremarkable. The overall appearance is similar to the 2022 examination. No ascites or adenopathy. Uterus is present and unremarkable. No acute osseous abnormality. Moderate osseous demineralization noted with degenerative change present. IMPRESSION: Large amount of formed stool in the distal descending and sigmoid colon with liquid present throughout the lumen of the colon proximal to this, as well as a fluid-filled loops of small bowel in the left upper quadrant. The appearance of the bowel was similar on the 2022 examination and may represent fecal impaction. No bowel wall thickening or pericolonic inflammatory change. Close clinical and imaging follow-up suggested Electronically signed by Kira Manriquez 02-11-2025 6:56 PM Supervising Physician Co-Signing Physician Notes IM ATTENDING : Patient seen and examined. History obtained from patient and records. Concur with salient points upon review of preceding documentation by Ms. Maggie Liang PA-C. I take responsibility for plan of care below. FINAL ASSESSMENT AND PLAN as follows : Severe sepsis SIRS plus lactic acidosis secondary to viral illness (entero/rhinovirus) Troponin elevation secondary to above Hypertension, stable Hyperlipidemia on statin Rx DM2 on Ozempic, reasonable control as of recent hemoglobin A1c of 7.2 last September 2024 Hypothyroidism, euthyroid as of recent outpatient TSH Skin cancer status post surgery Anxiety/mood disorder, stable Constipation Admit to med/tele Follow CS Hold off on antibiotics for now until bacterial source found. Supportive management for viral illness Monitor lactic acid response to IVF ISS BG goal 110-140, carb count coverage Bowel regimen DVT prophylaxis. Lovenox subcu Full code I spent a total of 30 minutes coordinating, documenting, and providing care for this patientexcludingtime spent by another provider/QHP. Text document was generated using [employer] voice recognition software. It may contain grammatical or spelling errors. Kindly contact undersigned for clarification of any documentation item in question.
[2025-02-11] MEDS ORDERED: POLYETHYLENE (MIRALAX) 17 GM PACK PO PRN (22:38)
[2025-02-11] MEDS ORDERED: PROMETHAZINE 6.25 MG/50.25 ML BAG IV PRN (22:40)
[2025-02-11] MEDS ORDERED: GLUCOSE 40% GEL 15 GM TUBE PO PRN (23:06)
[2025-02-11] MEDS ORDERED: CARBOHYDRATES FOR HYPOGLYCEMIA PO PRN (23:06)
[2025-02-11] MEDS ORDERED: GLUCAGON FOR INJ 1 MG VIAL SQ PRN (23:06)
[2025-02-11] MEDS ORDERED: GLUCOSE 10 TAB/TUBE PO PRN (23:06)
[2025-02-11] MEDS ORDERED: DEXTROSE 50% 50 ML SYRINGE IV PRN (23:06)
[2025-02-11] MEDS: DOCUSATE SODIUM/SENNA 50/8.6MG TAB PO SCH (23:14)
[2025-02-11] MEDS: POLYETHYLENE (MIRALAX) 17 GM PACK PO STA (23:14)
[2025-02-11] MEDS: INSULIN ASPART PER UNIT CHARGE SC SCH (23:24)
[2025-02-12 00:27] LABS: Base Excess VBG 1.7 mEq/L; HCO3 VBG 28 mmol/L; Oxygen Saturation VBG < 60.0 %; PCO2 VBG 48 mmHg (38-50); PO2 VBG 31 mmHg; pH VBG 7.37 (7.36-7.41)
[2025-02-12] MEDS: LEVOTHYROXINE SODIUM 50 MCG TABLET PO SCH (05:57)
[2025-02-12 07:23] LABS: Anion Gap 4.0 (3-11); Blood Urea Nitrogen 12.0 mg/dl (6-23); Calcium 8.4 mg/dl (8.6-10.3); Carbon Dioxide 30.0 mmol/L (21-32); Chloride 110.0 mmol/L (98-107); Creatinine Clr Calc Pharmacy 105.4 ml/min; Glucose 99.0 mg/dl (70-99(Fasting)); Potassium 4.2 mmol/L (3.5-5.1); Sodium 144.0 mmol/L (136-145)
[2025-02-12 07:38] LABS: Hematocrit (blood only) 33.5 % (37.0-47.0); Hemoglobin 10.6 g/dl (12.0-16.0); Mean Corpuscular Hemoglobin 28.9 pg (25.0-34.0); Mean Corpuscular Volume 91.3 fL (80.0-100.0); Platelet Count 285 K/uL (130-400); RDW Standard Deviation 45.5 fL (36.4-46.3); Red Blood Count 3.67 M/uL (4.20-5.40); White Blood Count 13.23 K/ul (4.8-10.8)
[2025-02-12 08:18] LABS: Immature Granulocytes # (auto) 0.04 K/uL (0.01-0.20); Immature Granulocytes % (auto) 0.3 %
[2025-02-12] MEDS: VENLAFAXINE HCL XR 150 MG CAPXR PO SCH (08:48)
--- NOTE | 2025-02-12 14:15 | Hospitalist Progress Note ---
Date of Service February 12, 2025 Assessment & Plan (1) Enterovirus infection: (2) Rhinovirus infection: (3) Elevated lactic acid level: (4) Leukocytosis: (5) Nausea & vomiting: (6) Elevated troponin: (7) Constipation: (8) Diabetes mellitus, type 2: (9) HTN (hypertension): (10) Depression: (11) Hyperlipidemia: (12) Hypothyroidism: Plan This is a 59-year-old female with PMH of type 2 diabetes, dyslipidemia, hypothyroidism, hypertension, MCCANN, B12 deficiency, depression with anxiety and other medical problems listed below who was brought to ED after developing nausea and intractable vomiting this afternoon and was found to have enterovirus/rhinovirus as well as lactic acidosis in setting of dehydration. ASSESSMENT AND PLAN Initially concern for sepsis given + SIRS plus lactic acidosis secondary to viral illness (entero/rhinovirus) Nausea/vomiting Dehydration Leukocytosis Antibiotics not started on admission, as no bacterial source Received IVF Blood culture pending Supportive management for viral illness Lactic acid normalized now after IVF Pt feels much improved. WBC down from 19k to 13k today. No more nausea or vomiting. Tolerating clear liquid diet. + constipation, Bowel regimen Troponin elevation secondary to above Hypertension, stable Hyperlipidemia on statin Rx DM2 on Ozempic, reasonable control as of recent hemoglobin A1c of 7.2 last September 2024, ISS BGS goal 110-140, carb count coverage Hypothyroidism, euthyroid as of recent outpatient TSH Skin cancer status post surgery Anxiety/mood disorder, stable DVT prophylaxis. Lovenox subcu Full code Admission and Anticipated Discharge Date Admission Date: February 11, 2025 Subjective Pt seen in follow up of nausea/vomiting, + rhinovirus Pt is lying in bed in NAD, overall reports feeling better, tolerating clear liquid diet No fever, but had chills last night. No chest pain, shortness of breath, no abd. pain. + constipation. Says she is not dizzy when walking to bathroom Review of Systems Review of Systems: All systems reviewed & are unremarkable except as noted in Subjective Physical Exam Physical Exam: General Appearance: WD/WN F in NAD Head: normocephalic, atraumatic Eyes: normal inspection, PERRL ENT: external ear and nose normal Neck: normal visual inspection Respiratory: normal respiratory effort, lungs clear to auscultation, no wheeze, rales, rhonchi. No accessory muscle use Cardiovascular: rrr, normal peripheral pulses, no BLE edema Chest: normal inspection of chest Abdomen/GI: normal bowel sounds, soft, nontender Extremities/Musculoskeletal: moves extremities Neurologic: PERRL, EOMI, no face palsy, no dysarthria, answers appropriately, moves all extremities Psychiatric: A+Ox3, euthymic affect Skin: no rashes, normal color, warm/dry Results & Data Results & Data Vital Signs (Past 12 Hours) Vital Signs Temp Pulse Pulse Resp BP Pulse Ox O2 Del Method 02/12/25 11:22 36.9 C 79 18 101/62 94 Room Air 02/12/25 08:00 Room Air 02/12/25 07:52 80 02/12/25 07:32 37.2 C 77 18 100/63 94 Room Air 02/12/25 03:39 36.9 C 78 18 108/61 97 Room Air Laboratory Results 02/12/25 02/12/25 02/12/25 Range/Units 12:09 07:59 05:57 WBC 13.23 H (4.8-10.8) K/ul RBC 3.67 L (4.20-5.40) M/uL Hgb 10.6 L D (12.0-16.0) g/dl Hct 33.5 L (37.0-47.0) % MCV 91.3 (80.0-100.0) fL MCH 28.9 (25.0-34.0) pg MCHC 31.6 L (32.0-36.0) g/dL RDW Std Deviation 45.5 (36.4-46.3) fL RDW Coeff of Mallory 13.5 (11.5-14.5) % Plt Count 285 (130-400) K/uL MPV 11.1 (9.4-12.4) fL Immature Gran % (Auto) 0.3 % Neut % (Auto) 73.8 % Lymph % (Auto) 19.3 % Knott % (Auto) 5.9 % Eos % (Auto) 0.5 % Baso % (Auto) 0.2 % Neut # (Auto) 9.77 H (1.40-6.50) K/uL Lymph # (Auto) 2.55 (1.20-3.40) K/uL Knott # (Auto) 0.78 H (0.11-0.59) K/uL Eos # (Auto) 0.06 (0.00-0.50) K/uL Baso # (Auto) 0.03 (0.00-0.20) K/uL Immature Gran # (Auto) 0.04 (0.01-0.20) K/uL VBG pH (7.36-7.41) VBG pCO2 (38-50) mmHg VBG pO2 mmHg VBG HCO3 mmol/L VBG O2 Saturation % VBG Base Excess mEq/L Sodium 144 (136-145) mmol/L Potassium 4.2 (3.5-5.1) mmol/L Chloride 110 H (98-107) mmol/L Carbon Dioxide 30 (21-32) mmol/L Anion Gap 4 (3-11) BUN 12 (6-23) mg/dl Creatinine 0.49 L (0.6-1.2) mg/dl Est Cr Clr Drug Dosing 105.4 ml/min eGFR 107.83 BUN/Creatinine Ratio 24.5 H (10-20) Glucose 99 (70-99(Fasting)) mg/dl POC Glucose 88 108 H (70-99) mg/dl Lactate (0.4-2.0) mmol/L Calcium 8.4 L (8.6-10.3) mg/dl Magnesium (1.7-2.4) mg/dl Total Bilirubin (0.2-1.0) mg/dl AST (13-39) U/L ALT (7-52) U/L Alkaline Phosphatase (34-104) U/L Troponin I High Sens 21.6 H D (0-14) pg/ml Total Protein (6.0-8.3) gm/dl Albumin (3.4-5.0) gm/dl Globulin (2.5-4.0) gm/dl Albumin/Globulin Ratio (0.9-2) Lipase (11-82) U/L Procalcitonin (0-0.5) ng/ml Urine Color Urine Appearance (Clear) Urine pH (4.5-7.5) Ur Specific [place] (1.000-1.030) Urine Protein (Negative) Urine Glucose (UA) (Negative) Urine Ketones (Negative) Urine Blood (Negative) Urine Nitrite (Negative) Urine Bilirubin (Negative) Urine Urobilinogen (Negative) Ur Leukocyte Esterase (Negative) Urine WBC (Auto) (0-5) /hpf Urine RBC (Auto) (0-2) /hpf U Hyaline Cast (Auto) (0-2) /lpf U Epithel Cells (Auto) (0-2) /hpf Urine Bacteria (Auto) (None Seen) Urine Comment Adenovirus (PCR) (NotDetected) B. pertussis DNA (PCR) (NotDetected) B.parapertussis DNA PCR (NotDetected) C. pneumoniae DNA (PCR) (NotDetected) Coronavirus OC43 (PCR) (NotDetected) Coronavirus HKU1 (PCR) (NotDetected) Coronavirus 229E (PCR) (NotDetected) SARS-CoV-2 (PCR) (NotDetected) Coronavirus NL63 (PCR) (NotDetected) Hepatitis C Ab Screen Negative (Negative) Human Metapneumovir PCR (NotDetected) Influenza Type A (PCR) (NotDetected) Influenza Type B (PCR) (NotDetected) M. pneumoniae (PCR) (NotDetected) Parainfluenza 1 (PCR) (NotDetected) Parainfluenza 2 (PCR) (NotDetected) Parainfluenza 3 (PCR) (NotDetected) Parainfluenza 4 (PCR) (NotDetected) RSV (PCR) (NotDetected) Entero/Rhino (PCR) (NotDetected) 02/12/25 02/11/25 02/11/25 Range/Units 00:12 Unknown 23:18 WBC (4.8-10.8) K/ul RBC (4.20-5.40) M/uL Hgb (12.0-16.0) g/dl Hct (37.0-47.0) % MCV (80.0-100.0) fL MCH (25.0-34.0) pg MCHC (32.0-36.0) g/dL RDW Std Deviation (36.4-46.3) fL RDW Coeff of Mallory (11.5-14.5) % Plt Count (130-400) K/uL MPV (9.4-12.4) fL Immature Gran % (Auto) % Neut % (Auto) % Lymph % (Auto) % [place]t % (Auto) % Eos % (Auto) % Baso % (Auto) % Neut # (Auto) (1.40-6.50) K/uL Lymph # (Auto) (1.20-3.40) K/uL [place]t # (Auto) (0.11-0.59) K/uL Eos # (Auto) (0.00-0.50) K/uL Baso # (Auto) (0.00-0.20) K/uL Immature Gran # (Auto) (0.01-0.20) K/uL VBG pH 7.37 (7.36-7.41) VBG pCO2 48 (38-50) mmHg VBG pO2 31 mmHg VBG HCO3 28 mmol/L VBG O2 Saturation < 60.0 % VBG Base Excess 1.7 mEq/L Sodium (136-145) mmol/L Potassium (3.5-5.1) mmol/L Chloride (98-107) mmol/L Carbon Dioxide (21-32) mmol/L Anion Gap (3-11) BUN (6-23) mg/dl Creatinine (0.6-1.2) mg/dl Est Cr Clr Drug Dosing ml/min eGFR BUN/Creatinine Ratio (10-20) Glucose (70-99(Fasting)) mg/dl POC Glucose 112 H (70-99) mg/dl Lactate 1.0 (0.4-2.0) mmol/L Calcium (8.6-10.3) mg/dl Magnesium (1.7-2.4) mg/dl Total Bilirubin (0.2-1.0) mg/dl AST (13-39) U/L ALT (7-52) U/L Alkaline Phosphatase (34-104) U/L Troponin I High Sens 43.3 H D (0-14) pg/ml Total Protein (6.0-8.3) gm/dl Albumin (3.4-5.0) gm/dl Globulin (2.5-4.0) gm/dl Albumin/Globulin Ratio (0.9-2) Lipase (11-82) U/L Procalcitonin (0-0.5) ng/ml Urine Color Urine Appearance (Clear) Urine pH (4.5-7.5) Ur Specific [place] (1.000-1.030) Urine Protein (Negative) Urine Glucose (UA) (Negative) Urine Ketones (Negative) Urine Blood (Negative) Urine Nitrite (Negative) Urine Bilirubin (Negative) Urine Urobilinogen (Negative) Ur Leukocyte Esterase (Negative) Urine WBC (Auto) (0-5) /hpf Urine RBC (Auto) (0-2) /hpf U Hyaline Cast (Auto) (0-2) /lpf U Epithel Cells (Auto) (0-2) /hpf Urine Bacteria (Auto) (None Seen) Urine Comment Adenovirus (PCR) Not Detected (NotDetected) B. pertussis DNA (PCR) Not Detected (NotDetected) B.parapertussis DNA PCR Not Detected (NotDetected) C. pneumoniae DNA (PCR) Not Detected (NotDetected) Coronavirus OC43 (PCR) Not Detected (NotDetected) Coronavirus HKU1 (PCR) Not Detected (NotDetected) Coronavirus 229E (PCR) Not Detected (NotDetected) SARS-CoV-2 (PCR) Not Detected (NotDetected) Coronavirus NL63 (PCR) Not Detected (NotDetected) Hepatitis C Ab Screen (Negative) Human Metapneumovir PCR Not Detected (NotDetected) Influenza Type A (PCR) Not Detected (NotDetected) Influenza Type B (PCR) Not Detected (NotDetected) M. pneumoniae (PCR) Not Detected (NotDetected) Parainfluenza 1 (PCR) Not Detected (NotDetected) Parainfluenza 2 (PCR) Not Detected (NotDetected) Parainfluenza 3 (PCR) Not Detected (NotDetected) Parainfluenza 4 (PCR) Not Detected (NotDetected) RSV (PCR) Not Detected (NotDetected) Entero/Rhino (PCR) DETECTED A (NotDetected) 02/11/25 02/11/25 02/11/25 Range/Units 19:36 19:18 18:44 WBC (4.8-10.8) K/ul RBC (4.20-5.40) M/uL Hgb (12.0-16.0) g/dl Hct (37.0-47.0) % MCV (80.0-100.0) fL MCH (25.0-34.0) pg MCHC (32.0-36.0) g/dL RDW Std Deviation (36.4-46.3) fL RDW Coeff of Mallory (11.5-14.5) % Plt Count (130-400) K/uL MPV (9.4-12.4) fL Immature Gran % (Auto) % Neut % (Auto) % Lymph % (Auto) % [place] % (Auto) % Eos % (Auto) % Baso % (Auto) % Neut # (Auto) (1.40-6.50) K/uL Lymph # (Auto) (1.20-3.40) K/uL [place]t # (Auto) (0.11-0.59) K/uL Eos # (Auto) (0.00-0.50) K/uL Baso # (Auto) (0.00-0.20) K/uL Immature Gran # (Auto) (0.01-0.20) K/uL VBG pH (7.36-7.41) VBG pCO2 (38-50) mmHg VBG pO2 mmHg VBG HCO3 mmol/L VBG O2 Saturation % VBG Base Excess mEq/L Sodium (136-145) mmol/L Potassium (3.5-5.1) mmol/L Chloride (98-107) mmol/L Carbon Dioxide (21-32) mmol/L Anion Gap (3-11) BUN (6-23) mg/dl Creatinine (0.6-1.2) mg/dl Est Cr Clr Drug Dosing ml/min eGFR BUN/Creatinine Ratio (10-20) Glucose (70-99(Fasting)) mg/dl POC Glucose 119 H (70-99) mg/dl Lactate 2.7 H* (0.4-2.0) mmol/L Calcium (8.6-10.3) mg/dl Magnesium (1.7-2.4) mg/dl Total Bilirubin (0.2-1.0) mg/dl AST (13-39) U/L ALT (7-52) U/L Alkaline Phosphatase (34-104) U/L Troponin I High Sens (0-14) pg/ml Total Protein (6.0-8.3) gm/dl Albumin (3.4-5.0) gm/dl Globulin (2.5-4.0) gm/dl Albumin/Globulin Ratio (0.9-2) Lipase (11-82) U/L Procalcitonin (0-0.5) ng/ml Urine Color Yellow Urine Appearance Clear (Clear) Urine pH 5.5 (4.5-7.5) Ur Specific [place] 1.033 H (1.000-1.030) Urine Protein Trace H (Negative) Urine Glucose (UA) 3+ H (Negative) Urine Ketones Trace H (Negative) Urine Blood Negative (Negative) Urine Nitrite Negative (Negative) Urine Bilirubin Negative (Negative) Urine Urobilinogen Negative (Negative) Ur Leukocyte Esterase Negative (Negative) Urine WBC (Auto) 0-5 (0-5) /hpf Urine RBC (Auto) 0-2 (0-2) /hpf U Hyaline Cast (Auto) 6-10 H (0-2) /lpf U Epithel Cells (Auto) 0-2 (0-2) /hpf Urine Bacteria (Auto) 1+ H (None Seen) Urine Comment Adenovirus (PCR) (NotDetected) B. pertussis DNA (PCR) (NotDetected) B.parapertussis DNA PCR (NotDetected) C. pneumoniae DNA (PCR) (NotDetected) Coronavirus OC43 (PCR) (NotDetected) Coronavirus HKU1 (PCR) (NotDetected) Coronavirus 229E (PCR) (NotDetected) SARS-CoV-2 (PCR) (NotDetected) Coronavirus NL63 (PCR) (NotDetected) Hepatitis C Ab Screen (Negative) Human Metapneumovir PCR (NotDetected) Influenza Type A (PCR) (NotDetected) Influenza Type B (PCR) (NotDetected) M. pneumoniae (PCR) (NotDetected) Parainfluenza 1 (PCR) (NotDetected) Parainfluenza 2 (PCR) (NotDetected) Parainfluenza 3 (PCR) (NotDetected) Parainfluenza 4 (PCR) (NotDetected) RSV (PCR) (NotDetected) Entero/Rhino (PCR) (NotDetected) 02/11/25 02/11/25 Range/Units 17:09 16:30 WBC 19.39 H (4.8-10.8) K/ul RBC 4.66 (4.20-5.40) M/uL Hgb 14.3 (12.0-16.0) g/dl Hct 43.1 (37.0-47.0) % MCV 92.5 (80.0-100.0) fL MCH 30.7 (25.0-34.0) pg MCHC 33.2 (32.0-36.0) g/dL RDW Std Deviation 45.7 (36.4-46.3) fL RDW Coeff of Mallory 13.4 (11.5-14.5) % Plt Count 381 (130-400) K/uL MPV 10.9 (9.4-12.4) fL Immature Gran % (Auto) 0.8 % Neut % (Auto) 84.7 % Lymph % (Auto) 12.2 % [place] % (Auto) 1.7 % Eos % (Auto) 0.2 % Baso % (Auto) 0.4 % Neut # (Auto) 16.45 H (1.40-6.50) K/uL Lymph # (Auto) 2.37 (1.20-3.40) K/uL [place] # (Auto) 0.32 (0.11-0.59) K/uL Eos # (Auto) 0.03 (0.00-0.50) K/uL Baso # (Auto) 0.07 (0.00-0.20) K/uL Immature Gran # (Auto) 0.15 (0.01-0.20) K/uL VBG pH (7.36-7.41) VBG pCO2 (38-50) mmHg VBG pO2 mmHg VBG HCO3 mmol/L VBG O2 Saturation % VBG Base Excess mEq/L Sodium 142 (136-145) mmol/L Potassium 3.6 (3.5-5.1) mmol/L Chloride 105 (98-107) mmol/L Carbon Dioxide 23 (21-32) mmol/L Anion Gap 14 H (3-11) BUN 16 (6-23) mg/dl Creatinine 0.72 (0.6-1.2) mg/dl Est Cr Clr Drug Dosing 68.7 ml/min eGFR 95.66 BUN/Creatinine Ratio 22.2 H (10-20) Glucose 231 H (70-99(Fasting)) mg/dl POC Glucose (70-99) mg/dl Lactate 6.2 H* (0.4-2.0) mmol/L Calcium 9.6 (8.6-10.3) mg/dl Magnesium 1.7 (1.7-2.4) mg/dl Total Bilirubin 0.3 (0.2-1.0) mg/dl AST 22 (13-39) U/L ALT 26 (7-52) U/L Alkaline Phosphatase 114 H (34-104) U/L Troponin I High Sens 19.3 H (0-14) pg/ml Total Protein 7.5 (6.0-8.3) gm/dl Albumin 4.3 (3.4-5.0) gm/dl Globulin 3.2 (2.5-4.0) gm/dl Albumin/Globulin Ratio 1.3 (0.9-2) Lipase 45 (11-82) U/L Procalcitonin 0.13 (0-0.5) ng/ml Urine Color Urine Appearance (Clear) Urine pH (4.5-7.5) Ur Specific [place] (1.000-1.030) Urine Protein (Negative) Urine Glucose (UA) (Negative) Urine Ketones (Negative) Urine Blood (Negative) Urine Nitrite (Negative) Urine Bilirubin (Negative) Urine Urobilinogen (Negative) Ur Leukocyte Esterase (Negative) Urine WBC (Auto) (0-5) /hpf Urine RBC (Auto) (0-2) /hpf U Hyaline Cast (Auto) (0-2) /lpf U Epithel Cells (Auto) (0-2) /hpf Urine Bacteria (Auto) (None Seen) Urine Comment Adenovirus (PCR) (NotDetected) B. pertussis DNA (PCR) (NotDetected) B.parapertussis DNA PCR (NotDetected) C. pneumoniae DNA (PCR) (NotDetected) Coronavirus OC43 (PCR) (NotDetected) Coronavirus HKU1 (PCR) (NotDetected) Coronavirus 229E (PCR) (NotDetected) SARS-CoV-2 (PCR) (NotDetected) Coronavirus NL63 (PCR) (NotDetected) Hepatitis C Ab Screen (Negative) Human Metapneumovir PCR (NotDetected) Influenza Type A (PCR) (NotDetected) Influenza Type B (PCR) (NotDetected) M. pneumoniae (PCR) (NotDetected) Parainfluenza 1 (PCR) (NotDetected) Parainfluenza 2 (PCR) (NotDetected) Parainfluenza 3 (PCR) (NotDetected) Parainfluenza 4 (PCR) (NotDetected) RSV (PCR) (NotDetected) Entero/Rhino (PCR) (NotDetected) Medications Administered Current Inpatient Medications Acetaminophen (Acetaminophen 500 Mg Tab) 500 mg PO Q6H PRN PRN Reason: fever/pain Stop: 03/13/25 22:39 Atorvastatin Calcium (Atorvastatin 20 Mg Tab) 20 mg PO HS MARVA Stop: 03/14/25 20:59 Dextrose (Dextrose 50% 50 Ml Syringe) 25 - 50 ml IV UD PRN; Protocol PRN Reason: Hypoglycemia Protocol Stop: 03/13/25 23:05 Glucagon (Glucagon For Inj 1 Mg Vial) 1 mg SQ UD PRN; Protocol PRN Reason: Hypoglycemia Protocol Stop: 03/13/25 23:05 Glucose (Glucose 40% Gel 15 Gm Tube) 15 - 30 gm PO UD PRN; Protocol PRN Reason: Hypoglycemia Protocol Stop: 03/13/25 23:05 Glucose (Glucose 10 Tab/Tube) 4 - 8 tab PO UD PRN; Protocol PRN Reason: Hypoglycemia Protocol Stop: 03/13/25 23:05 Hydroxyzine HCl (Hydroxyzine Hcl 10 Mg Tab) 10 mg PO QID PRN PRN Reason: Anxiety Stop: 03/13/25 22:39 Promethazine HCl (Phenergan) 6.25 mg in 50.25 mls @ 201 mls/hr IV Q6H PRN PRN Reason: Nausea And Vomiting Stop: 03/13/25 22:39 Insulin Aspart (Insulin Aspart Per Unit Charge) 0 units SC ACHS MARVA Stop: 03/13/25 23:05 Last Admin: 02/12/25 12:44 Dose: Not Given Levothyroxine Sodium (Levothyroxine Sodium 50 Mcg Tablet) 50 mcg PO DAILYBB MARVA Stop: 03/14/25 06:29 Last Admin: 02/12/25 05:57 Dose: 50 mcg Lisinopril (Lisinopril 5 Mg Tab) 5 mg PO QAM MARVA Stop: 03/14/25 08:59 Last Admin: 02/12/25 08:48 Dose: 5 mg Miscellaneous (Carbohydrates For Hypoglycemia ) 15 - 30 gm PO UD PRN PRN Reason: Hypoglycemia Protocol Stop: 03/13/25 23:05 Oxycodone HCl (Oxycodone Hcl Ir 5 Mg Tab (Immediate Release)) 5 mg PO Q4H PRN PRN Reason: Pain Stop: 02/25/25 22:39 Polyethylene Glycol (Polyethylene (Miralax) 17 Gm Pack) 17 gm PO DAILY PRN PRN Reason: Constipation Stop: 03/13/25 22:37 Senna/Docusate Sodium (Docusate Sodium/Senna 50/8.6mg Tab) 1 tab PO QAM [facility] Stop: 03/13/25 22:39 Last Admin: 02/11/25 23:14 Dose: 1 tab Venlafaxine HCl (Venlafaxine Hcl Xr 150 Mg Capxr) [facility] Stop: 03/14/25 08:59 Last Admin: 02/12/25 08:48 Dose: 150 mg
[2025-02-12] MEDS: SENNA 8.6 MG TAB PO SCH (17:12)
[2025-02-12] MEDS: ACETAMINOPHEN 500 MG TAB PO PRN (19:23)
[2025-02-12] MEDS: ATORVASTATIN 20 MG TAB PO SCH (20:05)
--- NOTE | 2025-02-13 05:38 | Electrocardiogram Report ---
Test Reason : Blood Pressure : */* mmHG Vent. Rate : 86 BPM Atrial Rate : 86 BPM P-R Int : 164 ms QRS Dur : 82 ms QT Int : 340 ms P-R-T Axes : 43 -12 92 degrees QTcB Int : 406 ms Poor data quality, interpretation may be adversely affected Normal sinus rhythm Low voltage QRS Cannot rule out Anterior infarct (cited on or before 07-Oct-2022) Nonspecific T wave abnormality Abnormal ECG When compared with ECG of 07-Oct-2022 12:44, Questionable change in initial forces of Lateral leads Nonspecific T wave abnormality now evident in Inferior leads T wave inversion now evident in Anterior leads Confirmed by Gustavo Gregory ([id number]) on 02/13/2025 5:37:41 AM Referred By: Confirmed By: Gustavo Gregory
[2025-02-13 06:14] LABS: Hematocrit (blood only) 34.8 % (37.0-47.0); Hemoglobin 11.0 g/dl (12.0-16.0); Mean Corpuscular Hemoglobin 28.6 pg (25.0-34.0); Mean Corpuscular Volume 90.4 fL (80.0-100.0); Platelet Count 272 K/uL (130-400); RDW Standard Deviation 44.8 fL (36.4-46.3); Red Blood Count 3.85 M/uL (4.20-5.40); White Blood Count 9.35 K/ul (4.8-10.8)
[2025-02-13 06:38] LABS: Anion Gap 4.0 (3-11); Blood Urea Nitrogen 8.0 mg/dl (6-23); Calcium 8.8 mg/dl (8.6-10.3); Carbon Dioxide 31.0 mmol/L (21-32); Chloride 107.0 mmol/L (98-107); Creatinine Clr Calc Pharmacy 129.2 ml/min; Glucose 102.0 mg/dl (70-99(Fasting)); Magnesium 1.9 mg/dl (1.7-2.4); Potassium 3.9 mmol/L (3.5-5.1); Sodium 142.0 mmol/L (136-145)
[2025-02-13 08:15] VITALS: RESP 16
--- NOTE | 2025-02-13 11:15 | Discharge Summary ---
Date of Service February 13, 2025 Admission HPI Per Admitting Provider This is a 59-year-old female with PMH of type 2 diabetes, dyslipidemia, hypothyroidism, hypertension, MCCANN, B12 deficiency, depression with anxiety and other medical problems listed below who was brought to ED after developing nausea and intractable vomiting this afternoon. Patient started to have a runny nose and sore throat on Monday but symptoms were mild and she was able to go to work the past 2 days. Ate lunch at [employer] today and had chicken noodle soup. Upon returning to the office, became suddenly nauseous and had multiple bouts of emesis. Says she vomited up to 9 times but they were small amounts and in quick succession before EMS was called and patient brought in for further evaluation. Since receiving antiemetics here, has not had any recurrent bouts of vomiting. Does not feel nauseous right now. No diarrhea or abdominal pain. Has not had a bowel movement in 5 days, which is typical for her on Ozempic. No fever, chills, chest pain, shortness of breath, dysuria. Takes all medications as prescribed. Admission Exam Per Admitting Provider General Appearance: WD/WN, vitals as above, NAD, sitting up in bed, pleasant, ill appearing Head: normocephalic, atraumatic Eyes: normal inspection, PERRL, conjunctivae normal, anicteric sclerae ENT: external ear and nose normal, dry mucous membranes of oropharynx Neck: normal visual inspection Respiratory: normal respiratory effort, lungs clear to auscultation, no wheeze, rales, rhonchi. No accessory muscle use Cardiovascular: tachycardic rate, rhythm, normal peripheral pulses, no BLE edema Chest: normal inspection of chest Abdomen/GI: normal bowel sounds, soft, slight TTP LLQ, no hepatosplenomegaly Extremities/Musculoskeletal: no cyanosis or clubbing, extremities motor strength 5/5 Neurologic: PERRL, EOMI, accommodation nl, no face palsy, no dysarthria, CN's II-XI intact bilaterally and moves all extremities Psychiatric: A+Ox3, euthymic affect Skin: no rashes, normal color, warm/dry Principal Diagnosis Leukocytosis, elevated lactic acid, nausea/vomiting + Rhinovirus Discharge Exam General Appearance: WD/WN F in NAD Head: normocephalic, atraumatic Eyes: normal inspection, PERRL ENT: external ear and nose normal Neck: normal visual inspection Respiratory: normal respiratory effort, lungs clear to auscultation, no wheeze, rales, rhonchi. No accessory muscle use Cardiovascular: rrr, normal peripheral pulses, no BLE edema Chest: normal inspection of chest Abdomen/GI: normal bowel sounds, soft, nontender Extremities/Musculoskeletal: moves extremities Neurologic: PERRL, EOMI, no face palsy, no dysarthria, answers appropriately, moves all extremities Psychiatric: A+Ox3, euthymic affect Skin: no rashes, normal color, warm/dry Discharge Data Allergies Allergy/AdvReac Type Severity Reaction Status Date / Time tree nut Allergy Severe swelling Verified 02/11/25 19:10 face/lips/tongue Penicillins Allergy Intermediate hives Verified 02/11/25 19:10 morphine AdvReac Intermediate vomit Verified 02/11/25 19:10 Consultations 02/11/25 19:05 ED Decision to Admit Stat Ordered Studies 02/11/25 17:29 CT Abd and Pelvis [CT abd pelvis IV con only] Stat FINDINGS: Lung bases unremarkable. Liver mildly enlarged measuring 17.2 cm. Gallbladder surgically absent. The stomach is under distended and not further evaluated. Large amount of formed stool present in the distal descending and sigmoid colon with fluid present throughout the lumen of the large bowel proximal to this. Fluid-filled loop of small bowel present in the left upper quadrant measuring 3.3 cm, image 51, series 2. Fluid-filled loop of small bowel in the right Long pelvis measuring 2.5 cm, not dilated. No bowel wall thickening or pericolonic inflammatory change. The pancreas, spleen, adrenals, aorta, IVC and kidneys are morphologically unremarkable. The overall appearance is similar to the 2022 examination. No ascites or adenopathy. Uterus is present and unremarkable. No acute osseous abnormality. Moderate osseous demineralization noted with degenerative change present. IMPRESSION: Large amount of formed stool in the distal descending and sigmoid colon with liquid present throughout the lumen of the colon proximal to this, as well as a fluid-filled loops of small bowel in the left upper quadrant. The appearance of the bowel was similar on the 2022 examination and may represent fecal impaction. No bowel wall thickening or pericolonic inflammatory change. Close clinical and imaging follow-up suggested Hospital Course (1) Enterovirus infection: (2) Rhinovirus infection: (3) Elevated lactic acid level: (4) Leukocytosis: (5) Nausea & vomiting: (6) Elevated troponin: (7) Constipation: (8) Diabetes mellitus, type 2: (9) HTN (hypertension): (10) Depression: (11) Hyperlipidemia: (12) Hypothyroidism: Plan This is a 59-year-old female with PMH of type 2 diabetes, dyslipidemia, hypothyroidism, hypertension, MCCANN, B12 deficiency, depression with anxiety and other medical problems listed below who was brought to ED after developing nausea and intractable vomiting this afternoon and was found to have enterovirus/rhinovirus as well as lactic acidosis in setting of dehydration. ASSESSMENT AND PLAN Initially concern for sepsis given + SIRS plus lactic acidosis secondary to viral illness (entero/rhinovirus) Nausea/vomiting Dehydration Leukocytosis Antibiotics not started on admission, as no bacterial source Received IVF Blood culture negative so far Supportive management for viral illness Lactic acid normalized now after IVF Pt feels much improved. WBC down from 19k to 13k to 9.35 K today (normalized). No more nausea or vomiting. Tolerating regular diet. + constipation, Bowel regimen Troponin elevation secondary to above Hypertension, stable Hyperlipidemia on statin Rx DM2 on Ozempic, reasonable control as of recent hemoglobin A1c of 7.2 last September 2024, ISS BGS goal 110-140, carb count coverage. Given severe constipation that pt has had - consider to decrease dose of ozempic to lessen the side effect of the medication. Hypothyroidism, euthyroid as of recent outpatient TSH Skin cancer status post surgery Anxiety/mood disorder, stable Total Time Total Time Spent Total Time Spent (In Minutes): 40 Discharge Plan Discharge Items Patient Disposition: Home - Self-Care Reason For Visit: LACTIC ACIDOSIS, TROP ELEV Discharge Diagnosis: Leukocytosis, elevated lactic acid, nausea/vomiting + Rhinovirus Condition on Discharge: Fair Activity: Per Instructions section Non-emergency contact: Primary Care Provider Call non-emergency contact if: you have any medication questions and your symptoms worsen Follow-up/Referrals: Ashia Cuellar MD [Primary Care Provider] - (Date & Time 02/20/2025 3:00 PM Provider: Eliza France CRNP [facility] ) Diet: Carb Consistent or DM2 Addtl Attending Provider Instructions: Follow up with your primary care physician within 1 week. The appointment was scheduled for you for 02/20/2025. Recommend to take stool softeners and encourage ambulation. Also, make sure to stay well hydrated. Discuss with your primary care provider if reasonable to decrease dose of ozemic giving your side effects - constipation. Pending Studies at Discharge: Yes Studies:: final blood cultx results Stand-Alone Forms: My [facility], Smoking Cessation Medications and DC Order Prescriptions: New sennosides [Senna Lax] 8.6 mg Tablet 8.6 mg PO QAM Qty: 30 0RF Continued levothyroxine 50 mcg Tablet 50 mcg PO DAILYBB metformin 1,000 mg Tablet 1,000 mg PO BIDM venlafaxine 150 mg Tablet Extended Release 24hr 150 mg PO QAM Rx Instructions: DO NOT CRUSH, CHEW OR CUT. atorvastatin 20 mg tablet 20 mg PO HS lisinopril 5 mg tablet 5 mg PO QAM Jardiance 25 mg tablet 25 mg PO QAM Ozempic 1 mg/dose (4 mg/3 mL) pen injector 1 mg SUBCUT WK Discharge Orders: Discharge Order (Routine); Ordered 02/13/25 Ordered By: Cheko Haynes Admission Data Admit Date/Time: 02/11/25 22:07 Attending Provider: Cheko Haynes Admit Provider: Brendan Velázquez Primary Care Provider: Ashia Cuellar Other Providers: Brendan Velázquez
[2025-02-13 12:09] VITALS: BP 108/63; PULSE 63; TEMP 97.9; O2SAT 96
--- NOTE | 2025-02-14 05:43 | Coding Query ---
CODING QUERY To promote full compliance with coding requirements relating to patient care, provider participation is requested in all cases of bread jockey uncertainty. Please assist us with the question(s) below: Coding Question(s): Th following documentation is present starting in the hospitalist progress note from 02/12 "Initially concern for sepsis given + SIRS plus lactic acidosis secondary to viral illness (entero/rhinovirus)." Can you please clarify the status of sepsis by placing an x in the parenthesis below? Sepsis POA ( ) Sepsis not POA ( ) Sepsis ruled out ( x ) Other, please specify ( ) Physician's Response(s): Thank you Allegra Mason Principal Diagnosis: "that condition established after study, to be chiefly responsible for occasioning the admission of the patient to the hospital for care." Co-Existing Principal Diagnosis: "when two or more diagnoses equally meet the criteria for principal diagnosis as determined by the circumstances of admission, diagnostic work up, and/or therapy provided, and the Alphabetic Index, Tabular List, or another coding guideline does not provide sequencing direction, any one of the diagnoses may be sequenced first." "When the physician has documented what appears to be a current diagnosis in the body of the record, but has not included the diagnosis in the final diagnostic statement, the physician should be asked whether the diagnosis should be added." (Source [facility]oding [facility] 2 QTR90. p3-4) ELLIE
== END 2025-02-13 14:41 | disposition home or self-care (01) | DRG 866 ==
LOC: ED 16:16 → 2W 22:07